=== PATIENT | female | born 1970 | race Caucasian/White ===

== ENCOUNTER 2020-03-14 12:33 | Inpatient (IN) | payer OTHER, SELFPAY ==
[2020-03-14 12:51] VITALS: BP 137/81; PULSE 104; RESP 17; TEMP 36.2; O2SAT 99; BMI 37.1
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
--- NOTE | 2020-03-14 13:53 | ECG_ITS ---
Test Reason : SOB Blood Pressure : / mmHG Vent. Rate : 091 BPM Atrial Rate : 091 BPM P-R Int : 152 ms QRS Dur : 080 ms QT Int : 356 ms P-R-T Axes : 028 003 050 degrees QTc Int : 437 ms Normal sinus rhythm Possible Left atrial enlargement Borderline ECG No previous ECGs available Referred By: Krzysztof hCeney Electronically Signed By:Lalo Gale
[2020-03-14 14:39] LABS: MANUAL DIFF FLAG NO
[2020-03-14 14:42] LABS: Basophils Percent Auto 0.1 % (0-2); Eosinophils Percent Auto 0.2 % (0-4); Hematocrit 41.7 % (37-47); Hemoglobin 13.5 g/dl (12.0-16.0); Imm Gran Abs Auto 0.04 X10*3/uL (0.00-0.03); Imm Gran Pct Auto 0.4 % (0.0-0.4); Lymphocytes Percent Auto 20.9 % (20-40); Mean Corpuscular HGB Conc 32.4 g/dl (31.0-35.0); Mean Corpuscular Hemoglobin 29.2 pg (27.0-33.0); Mean Corpuscular Volume 90.1 fL (80-98); Mean Platelet Volume 10.5 fL (9.4-12.3); Monocytes Absolute Auto 0.7 X10*3/uL (0.1-1.2); Monocytes Percent Auto 6.8 % (2-11); Neutrophils Absolute Auto 6.8 X10*3/uL (2.0-8.3); Neutrophils Percent Auto 71.6 % (45-73); Platelet Count 268 X10*3/uL (160-400); Red Blood Count 4.63 X10*6/uL (4.20-5.50); Red Cell Distribution Width 13.8 % (11.0-16.0); White Blood Count 9.6 X10*3/uL (4.8-10.8)
[2020-03-14 14:46] LABS: Glucose Urine UA NEG (NEG); Leukocyte Esterase Urine NEG (NEG); Nitrite Urine NEG (NEG); PH 6.5 (5.0-8.0); Urine Blood NEG (NEG); Urine Ketones NEG (NEG); Urine Protein NEG (NEG-TRACE)
[2020-03-14 14:54] LABS: Appearance Urine CLEAR; Color Urine YELLOW
[2020-03-14 14:57] LABS: Ethanol < 10 mg/dL
[2020-03-14 15:00] LABS: Alanine Aminotransferase 15 U/L (0-31); Alkaline Phosphatase 83 U/L (39-117); Anion Gap 11 (12-20); Aspartate Amino Transferase 16 U/L (5-31); Bilirubin Direct < 0.2 mg/dL (0.0-0.5); Bilirubin Total 0.2 mg/dL (0.0-1.0); Blood Urea Nitrogen 9 mg/dL (9-16); Calcium 8.6 mg/dL (8.4-10.2); Carbon Dioxide 29 mmol/L (22-29); Chloride 102 mmol/L (96-108); Creatinine Clr Calc Pharmacy 118.8; Estimated Glomerular Filt Rate > 60; Glucose Random 86 mg/dL (60-115); Potassium 4.9 mmol/l (3.3-5.1); Sodium 137 mmol/L (135-145); Total Protein 6.8 g/dL (6.5-8.0)
[2020-03-14 15:13] LABS: Amphetamine Screen Urine Not Detected (Not Detect); Barbiturates, Urine Not Detected (Not Detect); Benzodiazepines Screen Urine Not Detected (Not Detect); Cannabinoid Screen Urine Not Detected (Not Detect); Cocaine Screen Urine Not Detected (Not Detect); Opiate Screen Urine Not Detected (Not Detect); Phencyclidine Screen Urine Not Detected (Not Detect)
[2020-03-14 15:18] VITALS: BP 121/79; PULSE 97; RESP 18; O2SAT 99
[2020-03-14 15:41] LABS: COVID-19 Test Negative (Negative)
[2020-03-14 15:46] LABS: UPreg QC Valid YES; Urine Pregnancy NEGATIVE (NEGATIVE)
--- NOTE | 2020-03-14 15:47 | PC.NURSE ---
Pt exit seeking, states i dont want to be a bother Reassured multiple times with some effect. Awaiting bed on [facility] at this time. Security at side for verbal redirection with good effect.
--- NOTE | 2020-03-14 16:04 | PC.NURSE ---
After episode of exit seeking behavior, CARE team down to assess, section 12 placed in chart.
--- NOTE | 2020-03-14 17:08 | PC.NURSE ---
Pt moved to POD
--- NOTE | 2020-03-14 20:09 | PC.NURSE ---
Patient in out of room asking when she is going up to [facility], seems mildly anxious d/t unit commotion, no distress reported, hatchery supervisor notified that patient is pending admission to M5 over 2 hours, will continue to monitor.
[2020-03-14] MEDS: diphenhydrAMINE HCL 25 MG TABLET 50 MG PO (21:14)
--- NOTE | 2020-03-14 21:58 | MHC.CARE ---
This health science writer spoke with pt at length several times throughout the evening re: her continuing to board in the ED pending admission. Admission planned for this evening has been delayed until the morning, which pt was then demanding to leave. This health science writer contacted Dr. Barbosa (outpatient psychiatrist) and facilitated communication between the two of them in order to discuss and reinforce the need for pt to await inpatient admission. Pt agreeable at this time, with request from Dr. Barbosa that pt be allowed to sleep in a recliner. ED charge nurse stated that a recliner cannot be moved into the pod, and pt has the option of remaining in the pod or moving to [place] in ED to use a recliner. This health science writer acquired a mat and additional pillow in order to support pt in creating a more comfortable sleeping arrangement.
[2020-03-14] MEDS: risperiDONE 2 MG TABLET PO (22:37)
--- NOTE | 2020-03-14 22:40 | PC.NURSE ---
Patient requested Risperidone 2 mg, reported she takes every night, prescribed by Dr Maryann Moncada, called Dr Wolf/verified risperidone dose/provider notified/ordered respieridone 2mg/administered, no distress observed/reported, will continue to monitor.
--- NOTE | 2020-03-15 02:21 | PC.NURSE ---
Patient is currently in bed appears sleeping, no distress observed/reported, respiration +/=/non-labored bilaterally, will continue to monitor.
--- NOTE | 2020-03-15 06:01 | PC.NURSE ---
Baggage And Mail Agent called/notified to communicate with [facility] for admission. [facility] called spoke with charge nurse, who advised to present the case to day shift per charge nurse no one has notified about the patient. Patient currently in bed, appears sleeping, no distress observed/reported, will continue to monitor.
--- NOTE | 2020-03-15 07:21 | PC.NURSE ---
Report received from JOB Dominguez. Pt resting, resp unlabored.
[2020-03-15 09:09] VITALS: BP 138/80; PULSE 106; RESP 16; TEMP 36.8; O2SAT 97
--- NOTE | 2020-03-15 09:50 | PC.NURSE ---
Care team in to pick pt up to transfer to M[facility]., Pt pleasant, affect even, no concerns reported, appears ion agreement w/ plan to transfer.
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
[2020-03-15] MEDS: Lithium Carbonate 300 MG CAPSULE PO ×2 (12:38→20:23)
[2020-03-15] MEDS: risperiDONE 1 MG TABLET PO (12:38)
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
[2020-03-15 18:00] VITALS: BP 122/63; PULSE 102; TEMP 36.8
[2020-03-15] MEDS: Magnesium Hydrox/Alum Hydrox 30 ML ORAL.SUSP PO (19:12)
[2020-03-15] MEDS: risperiDONE 2 MG TABLET PO (20:23)
[2020-03-15] MEDS: diphenhydrAMINE HCL 25 MG TABLET 50 MG PO (20:23)
[2020-03-15] MEDS: Omeprazole 20 MG CAPSULE.DR PO (20:53)
[2020-03-16] MEDS: diphenhydrAMINE HCL 25 MG TABLET 50 MG PO ×3 (00:25→21:44)
[2020-03-16 06:15] VITALS: BP 111/63; PULSE 94; RESP 18; TEMP 37.1; O2SAT 96
[2020-03-16] MEDS: Lithium Carbonate 300 MG CAPSULE PO ×2 (08:42→20:19)
[2020-03-16] MEDS: risperiDONE 1 MG TABLET PO (08:43)
[2020-03-16 10:34] LABS: Cholesterol 161 mg/dL; HDL Cholesterol 52 mg/dL; LDL Cholesterol Calculated 97 mg/dl; Triglycerides 60 mg/dL
[2020-03-16 10:54] LABS: Thyroid Stimulating Hormone 1.83 uIU/mL (0.32-4.0)
[2020-03-16] MEDS: Acetaminophen 325 MG TABLET 650 MG PO (11:29)
[2020-03-16] MEDS: Omeprazole 40 MG CAPSULE.DR PO ×2 (11:32→16:21)
[2020-03-16 11:36] LABS: Estimated Average Glucose 105 mg/dL; Hemoglobin A1c % 5.3 %
[2020-03-16 12:07] LABS: Folate 6.8 ng/mL (> or = 4.0); Vitamin B12 311 pg/mL (200-900)
[2020-03-16] MEDS: Milk of Magnesia 30 ML ORAL.SUSP PO (14:08)
[2020-03-16 16:24] VITALS: BP 116/72; PULSE 107; TEMP 37.4
--- NOTE | 2020-03-16 19:38 | HO.PSYCHPN ---
Subjective Subjective Date of Service: 03/16/20 Reason For Visit: depression Subjective Notes: 3 Day Interim History: Allyson was somewhat less labile today. She was less paranoid and more able to reality test. She did express fear of other patients on the unit and that she wanted to leave. However she was able to see that her fears were not reality based and that she needs a little more time in the hospital. Medication Compliance: Yes Side effects from medications: No Attending Groups: Yes Review of Systems Acute medical concerns: No Medical Review of Systems: unchanged Review of Systems Reports system reviewed and no additional complaints, except as documented and Reports as per HPI Mental Status Exam Mental Status Exam Patient Appearance: Well Grooomed Patient Orientation: Person, Place and Time Level of Consciousness: Awake Patient Behavior: Appropriate and Talkative Mood Description: Calm Affect Description: Calm and Labile Speech Pattern: Clear Memory Description: Intact Hallucinations: None Delusions: Paranoid Ideation Thought Process: Intact Thought Content: positive for Circumstantial, positive for Perseveration, negative for Suicidal Ideation and negative for Homicidal Ideation Judgement: Fair Diagnostics Vital Signs (24Hr): Vital Signs - 24 hr 03/16/20 06:15 03/16/20 16:24 Temperature 98.8 F 99.3 F Pulse Rate 94 107 H Respiratory Rate 18 Blood Pressure 111/63 116/72 Pulse Oximetry 96 Body Mass Index 37.1 Labs Results: 03/14/20 14:28 03/14/20 14:28 Labs: Laboratory Results - last 48 hr 03/16/20 03/16/20 03/16/20 09:17 09:17 09:17 Estimat Average Glucose 105 Hemoglobin A1c % 5.3 Triglycerides 60 Cholesterol 161 LDL Cholesterol, Calc 97 HDL Cholesterol 52 Vitamin B12 311 Folate 6.8 TSH 1.83 Medications Medications Current Medications Generic Name Dose Route Start Last Admin Trade Name Freq PRN Reason Stop Dose Admin Acetaminophen 650 mg 03/15/20 10:12 03/16/20 11:29 Acetaminophen 325 Mg Tablet PO 650 mg Q6H PRN Administration Headache/Pain Mild Scale (1-3) Al Hydroxide/Mg Hydroxide 30 ml 03/15/20 10:12 03/15/20 19:12 Magnesium Hydrox/Alum Hydrox 30 Ml Oral.Susp PO 30 ml Q6H PRN Administration Heartburn/Nausea Diphenhydramine HCl 50 mg 03/15/20 21:00 03/16/20 00:25 Diphenhydramine Hcl 25 Mg Tablet PO 50 mg BEDTIME MRX1 SWEETIE Administration [place] Carbonate 300 mg 03/15/20 11:40 03/16/20 08:42 [place] Carbonate 300 Mg Capsule PO 300 mg BID SWEETIE Administration Magnesium Hydroxide 30 ml 03/15/20 10:12 03/16/20 14:08 Milk Of Magnesia 30 Ml Oral.Susp PO 30 ml DAILY PRN Administration Constipation Nicotine 21 mg 03/16/20 11:25 03/16/20 13:07 Nicotine 21 Mg Patch.Td24 TRANSDERMA Not Given DAILY SWEETIE Omeprazole 40 mg 03/16/20 11:25 03/16/20 16:21 Omeprazole 40 Mg Capsule.Dr PO 40 mg BID@0630,1630 SWEETIE Administration Risperidone 1 mg 03/15/20 11:40 03/16/20 08:43 Risperidone 1 Mg Tablet PO 1 mg DAILY SWEETIE Administration Risperidone 2 mg 03/15/20 21:00 03/15/20 20:23 Risperidone 2 Mg Tablet PO 2 mg BEDTIME SWEETIE Administration Risperidone 0.5 mg 03/15/20 11:38 Risperidone 0.5 Mg Tablet PO Q4H PRN Anxiety Trazodone HCl 50 mg 03/15/20 10:12 Trazodone Hcl 50 Mg Tablet PO BEDTIME PRN Insomnia Allergies Allergies Allergy/AdvReac Type Severity Reaction Status Date / Time No Known Allergies Allergy Verified 03/14/20 13:53 Assessment & Plan Assessment & Plan (1) Bipolar 1 disorder: Status: Acute Code(s): F31.9 - Bipolar disorder, unspecified Assessment and Plan: CT Ramya and donna Anticipate DC 03/18/20 Greater than 50% of the session was spent on counseling and/or coordination of care Patient educated on: diagnosis and medication risk/benefits Informed Consent: further education needed Reason for contiued inpatient stay Substantial Risk for: inability to function
[2020-03-16] MEDS: risperiDONE 2 MG TABLET PO (20:19)
[2020-03-16] MEDS: risperiDONE 0.5 MG TABLET PO (22:49)
[2020-03-17] MEDS: traZODone HCL 50 MG TABLET PO ×2 (01:03→02:24)
[2020-03-17] MEDS: Omeprazole 40 MG CAPSULE.DR PO ×2 (05:58→16:18)
[2020-03-17 06:10] VITALS: BP 114/72; PULSE 97; RESP 16; TEMP 37; O2SAT 97
[2020-03-17] MEDS: Lithium Carbonate 300 MG CAPSULE PO ×2 (08:50→20:35)
[2020-03-17] MEDS: risperiDONE 1 MG TABLET PO (08:50)
[2020-03-17 16:23] VITALS: BP 113/80; PULSE 116; TEMP 37.3
--- NOTE | 2020-03-17 20:31 | P.PNPSI_ITS ---
Subjective Subjective Date of Service: 03/17/20 Reason For Visit: depression Subjective Notes: Conditional Voluntary and 3 Day Interim History: Patient seen in coverage for Dr. graeme ve[place] patient has 3 day notice tentative discharge for tomorrow. Patient was admitted in manic state with paranoia. Somewhat pressured but feels much more stable on Risperdal and lithium Medication Compliance: Yes Side effects from medications: No Review of Systems Constitutional: Reports as per HPI Cardiovascular: Reports no additional cardiovascular complaints Reports system reviewed and no additional complaints, except as documented and Reports as per HPI Mental Status Exam Mental Status Exam Patient Appearance: Well Grooomed Patient Orientation: Person, Place and Time Level of Consciousness: Awake Patient Behavior: Appropriate and Talkative Mood Description: Calm Affect Description: Calm and Labile Speech Pattern: Clear and Perseverating Memory Description: Intact Hallucinations: None Thought Process: Intact Thought Content: positive for Perseveration, negative for Suicidal Ideation and negative for Homicidal Ideation Judgement: Fair Judgement and Insight: no gross PI noted accepting tx Diagnostics Vital Signs (24Hr): Vital Signs - 24 hr 03/17/20 06:10 03/17/20 16:23 Temperature 98.6 F 99.1 F Pulse Rate 97 116 H Respiratory Rate 16 Blood Pressure 114/72 113/80 Pulse Oximetry 97 Body Mass Index 37.1 Labs Results: 03/14/20 14:28 03/14/20 14:28 Labs: Laboratory Results - last 48 hr 03/16/20 03/16/20 03/16/20 09:17 09:17 09:17 Estimat Average Glucose 105 Hemoglobin A1c % 5.3 Triglycerides 60 Cholesterol 161 LDL Cholesterol, Calc 97 HDL Cholesterol 52 Vitamin B12 311 Folate 6.8 TSH 1.83 Medications Medications Current Medications Generic Name Dose Route Start Last Admin Trade Name Freq PRN Reason Stop Dose Admin Acetaminophen 650 mg 03/15/20 10:12 03/16/20 11:29 Acetaminophen 325 Mg Tablet PO 650 mg Q6H PRN Administration Headache/Pain Mild Scale (1-3) Al Hydroxide/Mg Hydroxide 30 ml 03/15/20 10:12 03/15/20 19:12 Magnesium Hydrox/Alum Hydrox 30 Ml Oral.Susp PO 30 ml Q6H PRN Administration Heartburn/Nausea Diphenhydramine HCl 50 mg 03/15/20 21:00 03/16/20 21:44 Diphenhydramine Hcl 25 Mg Tablet PO 50 mg BEDTIME MRX1 SWEETIE Administration [place] Carbonate 300 mg 03/15/20 11:40 03/17/20 08:50 [place] Carbonate 300 Mg Capsule PO 300 mg BID SWEETIE Administration Magnesium Hydroxide 30 ml 03/15/20 10:12 03/16/20 14:08 Milk Of Magnesia 30 Ml Oral.Susp PO 30 ml DAILY PRN Administration Constipation Nicotine 21 mg 03/16/20 11:25 03/17/20 08:52 Nicotine 21 Mg Patch.Td24 TRANSDERMA Not Given DAILY SWEETIE Omeprazole 40 mg 03/16/20 11:25 03/17/20 16:18 Omeprazole 40 Mg Capsule.Dr PO 40 mg BID@0630,1630 SWEETIE Administration Risperidone 1 mg 03/15/20 11:40 03/17/20 08:50 Risperidone 1 Mg Tablet PO 1 mg DAILY SWEETIE Administration Risperidone 2 mg 03/15/20 21:00 03/16/20 20:19 Risperidone 2 Mg Tablet PO 2 mg BEDTIME SWEETIE Administration Risperidone 0.5 mg 03/15/20 11:38 03/16/20 22:49 Risperidone 0.5 Mg Tablet PO 0.5 mg Q4H PRN Administration Anxiety Trazodone HCl 50 mg 03/15/20 10:12 03/17/20 02:24 Trazodone Hcl 50 Mg Tablet PO 50 mg BEDTIME PRN Administration Insomnia Allergies Allergies Allergy/AdvReac Type Severity Reaction Status Date / Time No Known Allergies Allergy Verified 03/14/20 13:53 Assessment & Plan Assessment & Plan (1) Bipolar 1 disorder: Status: Acute Code(s): F31.9 - Bipolar disorder, unspecified (2) Paranoid delusion: Status: Acute Code(s): F22 - Delusional disorders Assessment and Plan: continue Risperdal and lithium patient on 3 day notice probable discharge tomorrow Greater than 50% of the session was spent on counseling and/or coordination of care Patient educated on: diagnosis and medication risk/benefits Informed Consent: further education needed Reason for contiued inpatient stay Substantial Risk for: rapid decompensation
[2020-03-17] MEDS: diphenhydrAMINE HCL 25 MG TABLET 50 MG PO (20:36)
[2020-03-17] MEDS: risperiDONE 2 MG TABLET PO (20:36)
[2020-03-17] MEDS: Melatonin 3 MG TABLET 6 MG PO (21:29)
[2020-03-18] MEDS: diphenhydrAMINE HCL 25 MG TABLET 50 MG PO (02:48)
[2020-03-18 05:15] VITALS: BP 93/63; PULSE 118; RESP 18; TEMP 36.8; O2SAT 96
[2020-03-18] MEDS: Omeprazole 40 MG CAPSULE.DR PO (06:36)
[2020-03-18] MEDS: Lithium Carbonate 300 MG CAPSULE PO (08:29)
[2020-03-18] MEDS: risperiDONE 1 MG TABLET PO (08:30)
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
== END 2020-03-18 12:00 | disposition home or self-care (01) | DRG 885 ==
LOC: HO.ED 03-15 09:28 → HO.PM5 03-15 09:30
PROVIDERS: Physician Assistant; Admitting Provider Psychiatry & Neurology Psychiatry; Emergency Provider Emergency Medicine; PCP Internal Medicine; Visit Provider Psychiatry & Neurology Psychiatry
DX: F31.9 Bipolar disorder, unspecified (principal); F17.210 Nicotine dependence, cigarettes, uncomplicated; Z71.6 Tobacco abuse counseling; Z20.828 Contact with and (suspected) exposure to other viral communicable diseases; Z79.899 Other long term (current) drug therapy
CPT/HCPCS: 36415; 80053; 80061; 80076; 80178; 80307; 80320; 81003; 81025; 82607; 82746; 83036; 84443; 85025; 87635; 93005; 99232; 99285; Q0163

== ENCOUNTER 2024-10-31 03:55 | Inpatient (IN) | payer OTHER, SELFPAY ==
--- NOTE | ~2024-10-31 | XR_ITS ---
CLINICAL HISTORY: leukocytosis, ams 1 view chest x-ray Comparison: None provided Findings: Portions of the exam are obscured by overlying material. The lungs are clear. Normal size heart. No acute fracture. IMPRESSION: 1. No acute findings. This document has been electronically signed by: Jovanni Duvall MD on 10/31/2024 06:23:31
[2024-10-31 03:59] VITALS: BP 172/91; PULSE 109; RESP 16; TEMP 37.1; O2SAT 97; BMI 33.3
--- NOTE | 2024-10-31 04:18 | PC.NURSE ---
upon entering triage pt stated she feels she's having manic episode and is paranoid and exhausted. pt then stated she'd actually like to leave. verbal reassurance provided to patient as we are here to help her with her sx. pt agreed and stated she needs help with her anxiety. pt denies si/hi/ah/vh. pt verbalizes she believes she needs to be inpt bed search and wants to be sent to a different facility, educated this can happen after speaking with care team and pt is in agreement. pt states she has not been able to sleep and requesting medication for sleep. pt is agreeable to blood work being done. extension service specialist in charge made aware and report given to pod RN.
[2024-10-31 04:26] LABS: Hematocrit 39.6 % (37.0-47.0); Hemoglobin 14.5 g/dl (12.0-16.0); Imm Gran Abs Auto 0.14 X10*3/uL (0.00-0.03); Imm Gran Pct Auto 0.9 % (0.0-0.4); Lymphocytes Absolute Auto 1.7 X10*3/uL (1.2-4.9); MANUAL DIFF FLAG NO; Mean Corpuscular HGB Conc 36.6 g/dl (31.0-35.0); Mean Corpuscular Hemoglobin 31.0 pg (27.0-33.0); Mean Corpuscular Volume 84.6 fL (80.0-98.0); NRBC Abs Auto 0.000 X10*3/uL (0.0-0.012); NRBC Pct Auto 0.0 /100WBC (0.0-0.2); Platelet Count 298 X10*3/uL (160-400); Red Blood Count 4.68 X10*6/uL (4.20-5.50); White Blood Count 16.0 X10*3/uL (4.8-10.8)
--- NOTE | 2024-10-31 04:40 | ED.PSYCH ---
HPI - Psych General Chief Complaint: Psychiatric Symptoms Stated Complaint: Psych requesting help Time Seen by Provider: 10/31/24 04:29 Source: patient Mode of arrival: ambulatory Limitations: no limitations History of Present Illness ED Provider: Dr. Jeane Youngblood HPI Narrative: patient comes to the emergency room stating that she feels that she is paranoid, exhausted, has not been sleeping for over a week. Patient denies SI or HI. Patient states that she feels scared, does not know what to do. Patient states that she is requesting to be transferred to a different hospital because she knows a lot of people who work here and wants some privacy. Related Data Previous Rx's ?Medication ?Instructions ?Recorded diphenhydramine HCl 25 mg tablet 50 mg (2 x 25 mg) PO BEDTIME MRX1 03/18/20 (Allergy Relief (diphenhydramine)) #60 tabs lithium carbonate 300 mg capsule 600 mg (2 x 300 mg) PO BID #120 03/18/20 caps melatonin 3 mg tablet 6 mg (2 x 3 mg) PO BEDTIME #60 tabs 03/18/20 omeprazole 40 mg capsule,delayed 40 mg PO BID@0630,1630 #60 caps 03/18/20 release risperidone 1 mg tablet 1 mg PO DAILY #30 tabs 03/18/20 risperidone 2 mg tablet 2 mg PO BEDTIME #30 tabs 03/18/20 trazodone 50 mg tablet 50 mg PO BEDTIME PRN Insomnia #30 03/18/20 tabs Allergies Allergy/AdvReac Type Severity Reaction Status Date / Time No Known Allergies Allergy Verified 10/31/24 04:05 Review of Systems Review of Systems: Constitutional : No Weight loss, No Fever, No Chills, No Night Sweats, No Fatigue, No Malaise ENT/Mouth : No Hearing loss, No Ear Pain, No Nasal Congestion, No Sinus Pain, No Hoarseness, No sore throat, No Rhinorrhea, No Swallowing Difficulty Eyes: No Eye Pain, No Swelling, No Redness, No Foreign Body, No Discharge, No Vision Changes Cardiovascular : No Chest Pain, No SOB, No Dyspnea on Exertion, No Orthopnea, No Edema, No Palpitations Respiratory : No Cough, No Sputum, No Wheezing, No Smoke Exposure, No Dyspnea Gastrointestinal : No Nausea, No Vomiting, No Diarrhea, No Constipation, No abdominal Pain, No Hematochezia, No Melena Genitourinary : no irregular bleeding, No Dysuria, No Urinary Frequency, No Hematuria, No Urinary Incontinence, No Urgency, No Flank Pain, No Urinary Flow Changes, No Hesitancy Musculoskeletal : No joint pain, No Myalgias, No Joint Swelling Skin : No Skin Lesions, No rash Neuro : No Weakness, No Numbness, No Paresthesias, No Loss of Consciousness, No Dizziness, No Headache Psych : patient feeling scared, denies SI or HI, admits to feeling manic and paranoid Heme/Lymph: No Bruising, No Bleeding,No Lymphadenopathy Endocrine : No Polyuria, No Polydipsia, No Temperature Intolerance PMFSH Past Medical History Medical History Bipolar 1 disorder ADD (attention deficit disorder) Anxiety Depression Social History Social History Household Members: None Housing: House Do you presently have visiting nurse or other home services: No Cigarette Packs Per Day: 1 Cigarettes Per Day: 20.0 Years Smoked: 20 Smoked in Last 30 Days: No Second Hand Smoke Exposure: No Use of substances other than those prescribed or required for medical reasons: No Advance Directives: No Advance Directives Information Provided: No Patient : No service: No Sexual orientation: Straight/Heterosexual Physical Exam Exam: Exam: Appearance: Alert. Oriented X3. No acute distress. Eyes: Pupils equal, round and reactive to light. ENT: Pharynx normal. Neck: Normal inspection. Neck supple. No lymph nodes noted. No crepitus CVS: Normal heart rate and rhythm. Pulses normal. Normal S1 and S2 Respiratory: No respiratory distress. Breath sounds normal. No Wheezing. No rales Abdomen: Soft and nontender. No rigidity. No distention. Skin: Skin warm and dry. Normal skin color. Normal skin turgor. Extremities: No lower extremity edema. No Lacerations. No Rash Neuro: Oriented X 3. No motor deficit. No sensory deficit. Moving all extremities. No slurred speech. CN 2 through 12 grossly intact Psych: calm, anxious, speaking almost with spurring, states that a lot of people know her here and wants to be transferred to a different hospital were people do not know her Vital Signs: Vital Signs: Last Vital Signs Temp 98.7 F 10/31/24 03:59 Pulse 109 H 10/31/24 03:59 Resp 16 10/31/24 03:59 BP 172/91 H 10/31/24 03:59 Pulse Ox 97 10/31/24 03:59 O2 Del Method Room Air 10/31/24 03:59 BMI result Body Mass Index 33.3 Course Course Course Narrative: patient is paranoid, seems to be exhausted. Patient having difficulty following directions, feels scared, keeps saying that she does not know what to do. On arrival, patient voluntarily took p.o. medication including p.o. Haldol, Benadryl and Ativan care team consult physician observation started at 04:30 Medications Administered Discontinued Medications Generic Name Dose Route Start Last Admin Trade Name Freq PRN Reason Stop Dose Admin Diphenhydramine HCl 50 mg 10/31/24 04:30 10/31/24 04:37 Diphenhydramine Hcl 25 Mg Capsule PO 10/31/24 04:31 50 mg ONCE ONE Administration Haloperidol 5 mg 10/31/24 04:30 10/31/24 04:37 Haloperidol 5 Mg Tablet PO 10/31/24 04:31 5 mg ONCE ONE Administration Lorazepam 2 mg 10/31/24 04:30 10/31/24 04:36 Lorazepam 1 Mg Tablet PO 10/31/24 04:31 2 mg ONCE ONE Administration Medical Decision Making Medical Decision Making [facility] Narrative: my interpretation of labs: Patient's white blood cell count at 16, no obvious signs of infection, likely reactive leukocytosis. Chemistry shows a sodium of 123. It is possible that patient may have SIADH secondary to her psychiatric medications LFTs normal. urinalysis negative for UTI, negative for Toxicology. all of the sodium studies pending I discussed the patient with Dr. Bangura, patient being admitted. Differential Diagnosis Differential Diagnoses: The differential diagnosis associated with the presentation includes ( anxiety, depression, bipolar disorder) Admission/Observation Consideration of admission/observation: Escalation of care including admission/observation considered ( patient is under physician observation, waiting to be seen by the care team.) Consult Healthcare Provider Management of the patient was discussed with: Hospitalist Lab Data [facility] Lab Attestation statement: I reviewed the patient's lab results. 10/31/24 04:21 10/31/24 04:21 Labs: Lab Results 10/31/24 10/31/24 Range/Units 04:21 04:41 WBC 16.0 H (4.8-10.8) X10*3/uL RBC 4.68 (4.20-5.50) X10*6/uL Hgb 14.5 (12.0-16.0) g/dl Hct 39.6 (37.0-47.0) % MCV 84.6 (80.0-98.0) fL MCH 31.0 (27.0-33.0) pg MCHC 36.6 H (31.0-35.0) g/dl RDW 12.7 (11.0-16.0) % Plt Count 298 (160-400) X10*3/uL MPV 9.4 (9.4-12.3) fL Immature Gran % (Auto) 0.9 H (0.0-0.4) % Neut % (Auto) 82.6 H (45-73) % Lymph % (Auto) 10.7 L (20-40) % [place] % (Auto) 5.7 (2-11) % Eos % (Auto) 0.0 (0-4) % Baso % (Auto) 0.1 (0-2) % Lymph # (Auto) 1.7 (1.2-4.9) X10*3/uL [place] # (Auto) 0.9 (0.1-1.2) X10*3/uL Eos # (Auto) 0.0 (0.0-0.4) X10*3/uL Baso # (Auto) 0.0 (0.0-0.2) X10*3/uL Abs Immat Gran (auto) 0.14 H (0.00-0.03) X10*3/uL Absolute Neuts (auto) 13.2 H (2.0-8.3) x10*3/uL Absolute Nucleated RBC 0.000 (0.0-0.012) X10*3/uL Nucleated RBC % (auto) 0.0 (0.0-0.2) /100WBC Sodium 123 L (135-145) mmol/L Potassium 3.8 (3.3-5.1) mmol/L Chloride 91 L (96-108) mmol/L Carbon Dioxide 21 L (22-29) mmol/L Anion Gap 15 (12-20) BUN 5 L (9-16) mg/dL Creatinine 0.50 (0.5-1.4) mg/dL Estim Creat Clear Calc 139.7 Estimated GFR > 60 Random Glucose 172 H (60-115) mg/dL Calcium 8.7 (8.4-10.2) mg/dL Total Bilirubin 0.5 (0.0-1.0) mg/dL AST 26 (5-31) U/L ALT 24 (0-31) U/L Alkaline Phosphatase 80 (39-117) U/L Total Protein 6.8 (6.5-8.0) g/dL Albumin 4.1 (3.5-5.0) g/dL Urine Color Yellow Urine Appearance Clear Urine pH 7.5 (5.0-9.0) Ur Specific [place] 1.020 (1.005-1.025) Urine Protein Trace (Neg-Trace) mg/dL Urine Glucose (UA) >=1000 H (Negative) mg/dL Urine Ketones 40 (Negative) mg/dL Urine Blood Negative (Negative) Urine Nitrite Negative (Negative) Ur Leukocyte Esterase Moderate (2+) H (Negative) Urine RBC 0-2 (0-2) /HPF Urine WBC 0-5 (0-5) /HPF Ur Squamous Epith Cells 6-10 (0-2) /HPF Urine Bacteria 1+ (None Seen) Hyaline Casts 0-2 (0-2) /LPF Salicylates < 5.0 L (15-30) mg/dL Urine Opiates Screen Not Detected (Not Detect) Ur Buprenorphine Scrn Not Detected (Not Detect) ng/mL Ur Oxycodone Screen Not Detected (Not Detect) ng/mL Urine Methadone Screen Not Detected (Not Detect) ng/mL Urine Fentanyl Screen Not Detected (Not Detect) Acetaminophen < 3 (<30) mcg/mL Ur Barbiturates Screen Not Detected (Not Detect) Ur Phencyclidine Scrn Not Detected (Not Detect) Ur Amphetamines Screen Not Detected (Not Detect) U Benzodiazepines Scrn Not Detected (Not Detect) Urine Cocaine Screen Not Detected (Not Detect) U Marijuana (THC) Screen Not Detected (Not Detect) Ethyl Alcohol < 10 mg/dL Critical Care Time Critical Care Time Critical Care Time: Yes Total Critical Care Time: 60 Attestation: I have personally provided critical care time. Time includes review of lab data, radiology results, discussion with consultants, and monitoring for potential decompensation. Intervention performed as documented. Discharge Plan Discharge Clinical Impression: Acute hyponatremia, Bipolar 1 disorder Patient Disposition: Admitted As Inpatient Interventions: [place]-Suicide Risk Severity Scale Last Done: 10/31/24 04:58 Print Language: Citizen Of [place]
[2024-10-31 04:50] LABS: Acetaminophen LAB < 3 mcg/mL (<30); Alanine Aminotransferase 24 U/L (0-31); Albumin Level 4.1 g/dL (3.5-5.0); Alkaline Phosphatase 80 U/L (39-117); Anion Gap 15 (12-20); Aspartate Amino Transferase 26 U/L (5-31); Blood Urea Nitrogen 5 mg/dL (9-16); Calcium 8.7 mg/dL (8.4-10.2); Carbon Dioxide 21 mmol/L (22-29); Chloride 91 mmol/L (96-108); Creatinine Clr Calc Pharmacy 139.7; Estimated Glomerular Filt Rate > 60; Potassium 3.8 mmol/L (3.3-5.1); Salicylate < 5.0 mg/dL (15-30); Sodium 123 mmol/L (135-145); Total Protein 6.8 g/dL (6.5-8.0)
[2024-10-31 04:51] LABS: Appearance Urine Clear; Glucose Urine UA >=1000 mg/dL (Negative); PH 7.5 (5.0-9.0); Specific Gravity - Urine 1.020 (1.005-1.025); UMIC TRIGGER UACC YES
--- NOTE | 2024-10-31 04:56 | PC.NURSE ---
pt change management manager, labs, urine collected, pt medicated per mar.
[2024-10-31 05:02] LABS: Cannabinoid Screen Urine Not Detected (Not Detect)
--- NOTE | 2024-10-31 05:03 | PC.NURSE ---
Pt has two blister on her right and left foot from sandels
[2024-10-31 05:10] LABS: UACC Culture Trigger YES
--- NOTE | 2024-10-31 05:20 | PC.NURSE ---
Notified Dr. Youngblood of labs results, new orders placed, charge nurse aware, pt will be going to the main.
--- NOTE | 2024-10-31 05:38 | PC.NURSE ---
pt brought to room 6.
[2024-10-31 05:39] LABS: Osmolality, Serum 250 mosm/kg (281-305)
[2024-10-31 05:40] VITALS: BP 131/78; PULSE 88; RESP 14; TEMP 36.5; O2SAT 97
--- NOTE | 2024-10-31 05:41 | PC.NURSE ---
patient from POD due to lab results and change in condition. assumed care from prior RN at this time.
--- NOTE | 2024-10-31 05:47 | P.HPHOSP_ITS ---
History of Present Illness Date of Service: 10/31/24 Attending physician on admission: Gualberto Bangura Chief Complaint: anxiety Patient is a 54-year-old female with a past medical history significant for bipolar 1, who presented to the ED due to paranoia and anxiety stating that she is exhausted. Pt is somnolent and medicated, unable to provide a history at this time. Per Ed provider note pt is exhausted, has not been sleeping for over a week. Patient denies SI or HI. Patient states that she feels scared, does not know what to do. Patient states that she is requesting to be transferred to a different hospital because she knows a lot of people who work here and wants some privacy. In the ED she was found to be hyponatremic, likely SIADH. Tachycardia secondary to anxiety. Leukocytosis likely reactive, no infection identified. UTox negative, UA negative for infection. Review of Systems 2 Constitutional: Constitutional: Denies chills, Denies fatigue, Denies fever(s) and Denies headache(s) Eyes: Eyes: Denies change in vision ENT: Denies headache(s), Denies nasal congestion and Denies sore throat Cardiovascular: Cardiovascular: Denies chest pain, Denies rapid heart rate, Denies leg edema, Denies lightheadedness and Denies dyspnea Respiratory: Respiratory: Denies chest congestion, Denies cough, Denies dyspnea and Denies wheezing Gastrointestinal: Gastrointestinal: Denies abdominal pain, Denies nausea and Denies vomiting Genitourinary: Genitourinary: Denies dysuria and Denies urinary urgency Musculoskeletal: Musculoskeletal: Denies myalgias Integumentary/Breasts: Skin/Breast: Denies rash Neurologic: Denies confusion and Denies headache(s) Psychiatric: Psychiatric: Reports as per HPI and Denies confusion Endocrine: Endocrine: Denies fatigue Hematologic/Lymphatic: Hematologic/Lymphatic: Denies easy bleeding and Denies easy bruising Allergic/Immunologic: Allergic/Immunologic: Denies wheezing [facility] Medical History Bipolar 1 disorder ADD (attention deficit disorder) Anxiety Depression Functional capacity: independent ambulation Social History Household Members: None Housing: House Do you presently have visiting nurse or other home services: No Cigarette Packs Per Day: 1 Cigarettes Per Day: 20.0 Years Smoked: 20 Smoked in Last 30 Days: No Second Hand Smoke Exposure: No Use of substances other than those prescribed or required for medical reasons: No Advance Directives: No Advance Directives Information Provided: No Patient : No service: No Sexual orientation: Straight/Heterosexual Narrative: No smoking, alcohol or drug use Meds Allergies Allergy/AdvReac Type Severity Reaction Status Date / Time No Known Allergies Allergy Verified 10/31/24 04:05 Active Medications: Current Medications Acetaminophen (Acetaminophen 325 Mg Tablet) 975 mg PO Q6H PRN PRN Reason: Pain, Mild 1-3,fever,headache Calcium Carbonate (Calcium Carbonate 750 Mg Tab.Chew) 750 mg PO Q4H PRN PRN Reason: Heartburn Enoxaparin Sodium (Enoxaparin Sodium 40 Mg/0.4 Ml Syringe) 40 mg SUBCUT Q24H SWEETIE Magnesium Hydroxide (Milk Of Magnesia 30 Ml Oral.Susp) 30 ml PO DAILY PRN PRN Reason: Constipation Melatonin (Melatonin 3 Mg Tablet) 6 mg PO BEDTIME PRN PRN Reason: Insomnia Sodium Chloride (0.9 % Sodium Chloride Flush 3 Ml Syringe) 3 ml IVFLUSH QSHIFT SWEETIE Physical Exam 2 Vital Signs and Narrative: Vital Signs: Last Vital Signs Temp 97.7 F 10/31/24 05:40 Pulse 88 10/31/24 05:40 Resp 14 10/31/24 05:40 BP 131/78 10/31/24 05:40 Pulse Ox 97 10/31/24 05:40 O2 Del Method Room Air 10/31/24 05:40 BMI result Body Mass Index 33.3 General: somnolent, will goan when you call her name. no acute distress Resp: CTA bilaterally CVS: S1, S2, RRR GI: +BS, NT, no distention Skin: Warm, dry Neuro: Cranial nerves II-XII grossly intact bilaterally. Motor grossly intact bilaterally Extremities: No edema Psych: somnolent Const: General: No confusion Orientation/consciousness: No confusion Neuro: General: No confusion Results Labs 10/31/24 04:21 10/31/24 04:21 Labs: Laboratory Results - last 24 hr 10/31/24 10/31/24 10/31/24 04:21 04:41 05:08 MCV 84.6 MCH 31.0 MCHC 36.6 H RDW 12.7 Plt Count 298 MPV 9.4 Immature Gran % (Auto) 0.9 H Neut % (Auto) 82.6 H Lymph % (Auto) 10.7 L [place] % (Auto) 5.7 Eos % (Auto) 0.0 Baso % (Auto) 0.1 Lymph # (Auto) 1.7 [place] # (Auto) 0.9 Eos # (Auto) 0.0 Baso # (Auto) 0.0 Abs Immat Gran (auto) 0.14 H Absolute Neuts (auto) 13.2 H Absolute Nucleated RBC 0.000 Nucleated RBC % (auto) 0.0 Anion Gap 15 Estim Creat Clear Calc 139.7 Estimated GFR > 60 Random Glucose 172 H Osmolality 250 L Calcium 8.7 Total Bilirubin 0.5 AST 26 ALT 24 Alkaline Phosphatase 80 Total Protein 6.8 Albumin 4.1 Urine Color Yellow Urine Appearance Clear Urine pH 7.5 Ur Specific [place] 1.020 Urine Protein Trace Urine Glucose (UA) >=1000 H Urine Ketones 40 Urine Blood Negative Urine Nitrite Negative Ur Leukocyte Esterase Moderate (2+) H Urine RBC 0-2 Urine WBC 0-5 Ur Squamous Epith Cells 6-10 Urine Bacteria 1+ Hyaline Casts 0-2 Salicylates < 5.0 L Urine Opiates Screen Not Detected Ur Buprenorphine Scrn Not Detected Ur Oxycodone Screen Not Detected Urine Methadone Screen Not Detected Urine Fentanyl Screen Not Detected Acetaminophen < 3 Ur Barbiturates Screen Not Detected Ur Phencyclidine Scrn Not Detected Ur Amphetamines Screen Not Detected U Benzodiazepines Scrn Not Detected Urine Cocaine Screen Not Detected U Marijuana (THC) Screen Not Detected Ethyl Alcohol < 10 Assessment and Plan (1) Acute hyponatremia: Status: Acute (2) Bipolar 1 disorder: Status: Acute Plan Patient is a 54-year-old female with a past medical history significant for bipolar 1, who presented to the ED due to paranoia and anxiety stating that she is exhausted.Patient is a 54-year-old female with a past medical history significant for bipolar 1, who presented to the ED due to paranoia and anxiety stating that she is exhausted. acute hyponatremia, likely SIADH - sodium 123 - urine sodium, serum osmolality, urine osmolality pending - BNP with hypochloremic metabolic acidosis - UTox negative - UA negative for infection - leukocytosis, likely reactive, no infection identified - tachycardia secondary to anxiety - LR 50 mL/HR - psych consult - monitor BMP Bipolar 1 - anxious and paranoid, currently somnolent from benedryl, haldol and ativan in ED - psych consult Med rec pending Full code VTE prophylaxis: Lovenox Patient with acute hyponatremia, likely SIADH, requiring admission for at least 2 midnights stay for further evaluation, psych consult and monitoring. Quality Stroke Does the patient have a stroke diagnosis?: No VTE Prior VTE?: No VTE Risk Level:: Medical - moderate - high VTE Device Contraindication: Treatment Not Indicated VTE Drug Contraindication: N/A - Med Ordered
[2024-10-31] MEDS: Lactated Ringers 1,000 ML 50 ML IVCONT (05:57)
[2024-10-31 06:24] LABS: Resp Syncy Virus RNA Qual PCR NEGATIVE (Negative); SARS COV2 PCR INHOUSE NEGATIVE (Negative)
[2024-10-31 08:30] LABS: Thyroid Stimulating Hormone 1.00 uIU/mL (0.32-4.0)
[2024-10-31 09:48] VITALS: BP 125/65; PULSE 83; RESP 15; TEMP 36.6; O2SAT 97
--- NOTE | 2024-10-31 10:45 | PHA.MEDREC ---
Addendum entered by Penny Niño RPh 10/31/24 11:20: reviewed by [facility]. Original Note: Pharmacy Consult ? Medication Reconciliation Pharmacy has completed the medication reconciliation. Spoke with patient to confirm. She last took lamotrigine a few days ago. All other medications are as needed. She reports hydroxyzine is prn for anxiety.
[2024-10-31 11:57] VITALS: BMI 34.7
[2024-10-31 12:12] VITALS: BP 114/66; PULSE 88; RESP 16; TEMP 36.3; O2SAT 95
[2024-10-31 13:32] LABS: Anion Gap 9 (12-20); Blood Urea Nitrogen 4 mg/dL (9-16); Calcium 8.7 mg/dL (8.4-10.2); Carbon Dioxide 27 mmol/L (22-29); Chloride 95 mmol/L (96-108); Creatinine Clr Calc Pharmacy 145.8; Estimated Glomerular Filt Rate > 60; Potassium 3.9 mmol/L (3.3-5.1); Sodium 127 mmol/L (135-145)
[2024-10-31 15:15] VITALS: BP 122/66; PULSE 85; RESP 20; TEMP 36.8; O2SAT 97
--- NOTE | 2024-10-31 15:15 | PM.CNNEP ---
History of Present Illness Reason for Consult Consult date: 10/31/24 Reason for consult: Hyponatremia Chief Complaint Chief complaint: anxiety History of Present Illness Narrative: 54-year-old lady with past medical history of bipolar disease and paronia on clonidine, lamotrigine and olanzapine at home is admitted to the hospital due to hyponatremia. No history of vomiting, diarrhea, changes in diet. Urine sodium 125, urine osmolality 554 Review of Systems Review of Systems Patient is a poor historian does not want to talk much PMFSH Past Medical History Medical History Bipolar 1 disorder ADD (attention deficit disorder) Anxiety Depression Social History Social History Household Members: None Housing: House Do you presently have visiting nurse or other home services: No Cigarette Packs Per Day: 1 Cigarettes Per Day: 20.0 Years Smoked: 20 Smoked in Last 30 Days: No Second Hand Smoke Exposure: No Use of substances other than those prescribed or required for medical reasons: No Advance Directives: No Advance Directives Information Provided: No Patient : No service: No Sexual orientation: Straight/Heterosexual Meds Allergies Allergy/AdvReac Type Severity Reaction Status Date / Time No Known Allergies Allergy Verified 10/31/24 04:05 Active Medications: Current Medications Acetaminophen (Acetaminophen 325 Mg Tablet) 975 mg PO Q6H PRN PRN Reason: Pain, Mild 1-3,fever,headache Albuterol Sulfate (Albuterol Sulfate 90 Mcg 8 Gm Inhaler) 2 puff INHALE Q4H PRN PRN Reason: Shortness Of Breath Or Wheezing Calcium Carbonate (Calcium Carbonate 750 Mg Tab.Chew) 750 mg PO Q4H PRN PRN Reason: Heartburn Clonidine HCl (Clonidine Hcl 0.1 Mg Tablet) 0.1 mg PO BID PRN; Protocol PRN Reason: Anxiety Enoxaparin Sodium (Enoxaparin Sodium 40 Mg/0.4 Ml Syringe) 40 mg SUBCUT Q24H SWEETIE Last Admin: 10/31/24 10:30 Dose: 40 mg Hydroxyzine HCl (Hydroxyzine Hcl 50 Mg Tablet) 50 mg PO BEDTIME PRN PRN Reason: Anxiety Magnesium Hydroxide (Milk Of Magnesia 30 Ml Oral.Susp) 30 ml PO DAILY PRN PRN Reason: Constipation Melatonin (Melatonin 3 Mg Tablet) 6 mg PO BEDTIME PRN PRN Reason: Insomnia Olanzapine (Olanzapine 5 Mg Tablet) 5 mg PO BEDTIME PRN PRN Reason: Insomnia Sodium Chloride (0.9 % Sodium Chloride Flush 3 Ml Syringe) 3 ml IVFLUSH [facility] Last Admin: 10/31/24 07:15 Dose: Not Given Sodium Chloride (Sodium Chloride Tab 1 Gm Tablet) 1 gm PO TID [facility] Home Medications ?Medication ?Instructions ?Recorded ?Confirmed ?Last Taken ?Type albuterol sulfate 90 mcg/actuation 2 puff inhalation Q4H PRN 10/31/24 10/31/24 Unknown History aerosol inhaler Shortness Of Breath Or Wheezing clonidine HCl 0.1 mg tablet 0.1 mg PO BID PRN anxiety 10/31/24 10/31/24 Unknown History hydroxyzine pamoate 50 mg capsule 50 mg PO BEDTIME PRN Anxiety 10/31/24 10/31/24 Unknown History lamotrigine 100 mg tablet 100 mg PO DAILY 10/31/24 10/31/24 Unknown History olanzapine 5 mg tablet 5 mg PO BEDTIME PRN insomnia 10/31/24 10/31/24 Unknown History Physical Exam Exam Exam: General: Elderly lady comfortable, lying in the bed and sleeping Nutritional Appearance: well nourished and overweight Eyes: appearance normal, both eyes and all related structures; Alignment and Position: alignment normal and position normal Neck: No lymphadenopathy, no thyromegaly Resp: bilateral air entry equal, occasional added sounds present Cardio: Regular rate, regular rhythm; Heart sounds: S1 normal heart sound present and S2 normal heart sound present GI: soft, nontender, no guarding, no hepatosplenomegaly : bladder normal to inspection, bladder normal to palpation, no renal angle tenderness Skin: no rashes or lesions noted and elasticity normal Neuro: oriented to person, oriented to place, oriented to time and moves all extremities Vital Signs: Last Vital Signs Temp 97.4 F 10/31/24 12:12 Pulse 88 10/31/24 12:12 Resp 16 10/31/24 12:12 BP 114/66 10/31/24 12:12 Pulse Ox 95 10/31/24 12:12 O2 Del Method Room Air 10/31/24 12:12 BMI result Body Mass Index 34.7 Results Lab Results 10/31/24 04:21 10/31/24 12:45 Lab results: Chemistry 10/31/24 10/31/24 04:21 12:45 Sodium 123 L 127 L Potassium 3.8 3.9 Carbon Dioxide 21 L 27 BUN 5 L 4 L Creatinine 0.50 0.49 L Calcium 8.7 8.7 Hematology 10/31/24 04:21 WBC 16.0 H Hgb 14.5 Plt Count 298 Urinalysis 10/31/24 04:41 Urine Color Yellow Urine Appearance Clear Urine pH 7.5 Ur Specific [place] 1.020 Urine Protein Trace Urine Glucose (UA) >=1000 H Urine Ketones 40 Urine Blood Negative Urine Nitrite Negative Ur Leukocyte Esterase Moderate (2+) H Urine RBC 0-2 Urine WBC 0-5 Ur Squamous Epith Cells 6-10 Hyaline Casts 0-2 Urine Studies 10/31/24 05:25 Urine Osmolality 554 Assessment and Plan (1) Acute hyponatremia: Status: Acute Plan Acute hyponatremia: Possibly secondary to SIADH given her urine sodium 125 and Osmo 555 Given very high urine osmoles IV fluids would drop her serum sodium. Avoid any IV fluids. Fluid restriction less than 1.5 L in 24 hours We will add salt tablets 1 g TID Target sodium less than 130 by tomorrow. We will repeat another BMP tonight. Procedures Date of Service Date of Service: 10/31/24
[2024-10-31] MEDS: Sodium Chloride Tab 1 GM TABLET PO ×2 (15:24→20:07)
[2024-10-31] MEDS: 0.9 % Sodium Chloride Flush 3 ML SYRINGE IVFLUSH ×2 (16:34→20:09)
[2024-10-31 19:00] VITALS: BP 103/66; PULSE 91; RESP 20; TEMP 37.2; O2SAT 95
--- NOTE | 2024-10-31 20:16 | P.CNPS_ITS ---
History of Present Illness Date of Service: 10/31/24 Chief Complaint: anxiety Reason for Consult: Bipolar, parnaoid. Lamictal -SIDH Requesting physician: Deyanira Flynn Discussed with referring provider: Yes Sources of Information: patient interviewed, chart reviewed and crisis/core team assessment reviewed HPI Narrative: per ED provider note: patient is a 54 y.o female who comes to the emergency room stating that she feels that she is paranoid, exhausted, has not been sleeping for over a week. Patient denies SI or HI. Patient states that she feels scared, does not know what to do. Patient states that she is requesting to be transferred to a different hospital because she knows a lot of people who work here and wants some privacy. Past Psychiatric History: Hospital stay in [place] in summer 2019. Diagnosed with bipolar disorder Hospital stay about 20 years ago at [facility] History of overdose last year on Benadryl. Therapist is Bertha Cavazos Psychiatrist is Maryann Barbosa Medical Evaluation Reviewed: Yes Low sodium. On Fluid restriction. Personal & Social History: Live alone. Work as a nurse. Have no children. Review of Systems Review of Systems Constitutional: Denies fatigue and Denies fever(s) Cardiovascular: Denies chest pain and Denies dyspnea Respiratory: Denies dyspnea Gastrointestinal: Denies abdominal pain Psychiatric: denies suicidal ideation Endocrine: Denies fatigue [facility] Medical History Bipolar 1 disorder ADD (attention deficit disorder) Anxiety Depression Family History: Family history of substance use and mental illness Social History: Parents are Brother is Substance History: Denies Trauma History: Extensive trauma history Diagnostics Vital Signs (24Hr): Vital Signs - 24 hr 10/31/24 03:59 10/31/24 05:40 10/31/24 09:48 Temperature 98.7 F 97.7 F 97.9 F Pulse Rate 109 H 88 83 Respiratory Rate 16 14 15 Blood Pressure 172/91 H 131/78 125/65 Pulse Oximetry 97 97 97 Oxygen Delivery Method Room Air Room Air Room Air 10/31/24 12:12 10/31/24 15:15 10/31/24 19:00 Temperature 97.4 F 98.2 F 98.9 F Pulse Rate 88 85 91 Respiratory Rate 16 20 20 Blood Pressure 114/66 122/66 103/66 Pulse Oximetry 95 97 95 Oxygen Delivery Method Room Air Room Air Room Air BMI result Body Mass Index 34.7 Labs 11/01/24 06:14 11/02/24 05:59 Labs: Laboratory Results - last 48 hr 10/31/24 10/31/24 10/31/24 04:21 04:41 05:08 WBC 16.0 H RBC 4.68 Hgb 14.5 Hct 39.6 MCV 84.6 MCH 31.0 MCHC 36.6 H RDW 12.7 Plt Count 298 MPV 9.4 Immature Gran % (Auto) 0.9 H Neut % (Auto) 82.6 H Lymph % (Auto) 10.7 L [place] % (Auto) 5.7 Eos % (Auto) 0.0 Baso % (Auto) 0.1 Lymph # (Auto) 1.7 [place] # (Auto) 0.9 Eos # (Auto) 0.0 Baso # (Auto) 0.0 Abs Immat Gran (auto) 0.14 H Absolute Neuts (auto) 13.2 H Absolute Nucleated RBC 0.000 Nucleated RBC % (auto) 0.0 Hold Purple Top Sodium 123 L Potassium 3.8 Chloride 91 L Carbon Dioxide 21 L Anion Gap 15 BUN 5 L Creatinine 0.50 Estim Creat Clear Calc 139.7 Estimated GFR > 60 Random Glucose 172 H Osmolality 250 L Calcium 8.7 Total Bilirubin 0.5 AST 26 ALT 24 Alkaline Phosphatase 80 Total Protein 6.8 Albumin 4.1 TSH 1.00 Urine Color Yellow Urine Appearance Clear Urine pH 7.5 Ur Specific [place] 1.020 Urine Protein Trace Urine Glucose (UA) >=1000 H Urine Ketones 40 Urine Blood Negative Urine Nitrite Negative Ur Leukocyte Esterase Moderate (2+) H Urine RBC 0-2 Urine WBC 0-5 Ur Squamous Epith Cells 6-10 Urine Bacteria 1+ Hyaline Casts 0-2 Urine Osmolality Ur Random Sodium Salicylates < 5.0 L Urine Opiates Screen Not Detected Ur Buprenorphine Scrn Not Detected Ur Oxycodone Screen Not Detected Urine Methadone Screen Not Detected Urine Fentanyl Screen Not Detected Acetaminophen < 3 Ur Barbiturates Screen Not Detected Ur Phencyclidine Scrn Not Detected Ur Amphetamines Screen Not Detected U Benzodiazepines Scrn Not Detected Urine Cocaine Screen Not Detected U Marijuana (THC) Screen Not Detected Ethyl Alcohol < 10 Influenza Type A (PCR) Influenza Type B (PCR) RSV RNA Qual (PCR) SARS-CoV-2 RNA (RT-PCR) 10/31/24 10/31/24 10/31/24 05:25 05:30 12:45 WBC RBC Hgb Hct MCV MCH MCHC RDW Plt Count MPV Immature Gran % (Auto) Neut % (Auto) Lymph % (Auto) [place] % (Auto) Eos % (Auto) Baso % (Auto) Lymph # (Auto) [place] # (Auto) Eos # (Auto) Baso # (Auto) Abs Immat Gran (auto) Absolute Neuts (auto) Absolute Nucleated RBC Nucleated RBC % (auto) Hold Purple Top SEE NOTE Sodium 127 L Potassium 3.9 Chloride 95 L Carbon Dioxide 27 Anion Gap 9 L BUN 4 L Creatinine 0.49 L Estim Creat Clear Calc 145.8 Estimated GFR > 60 Random Glucose 99 Osmolality Calcium 8.7 Total Bilirubin AST ALT Alkaline Phosphatase Total Protein Albumin TSH Urine Color Urine Appearance Urine pH Ur Specific [place] Urine Protein Urine Glucose (UA) Urine Ketones Urine Blood Urine Nitrite Ur Leukocyte Esterase Urine RBC Urine WBC Ur Squamous Epith Cells Urine Bacteria Hyaline Casts Urine Osmolality 554 Ur Random Sodium 125.0 Salicylates Urine Opiates Screen Ur Buprenorphine Scrn Ur Oxycodone Screen Urine Methadone Screen Urine Fentanyl Screen Acetaminophen Ur Barbiturates Screen Ur Phencyclidine Scrn Ur Amphetamines Screen U Benzodiazepines Scrn Urine Cocaine Screen U Marijuana (THC) Screen Ethyl Alcohol Influenza Type A (PCR) NEGATIVE Influenza Type B (PCR) NEGATIVE RSV RNA Qual (PCR) NEGATIVE SARS-CoV-2 RNA (RT-PCR) NEGATIVE Mental Status Exam Mental Status Exam Narrative: Patient is alert and oriented; behavior is pleasant and cooperative,; patient is not in distress; dressed in hospital attire with kempt hair and adequate hygiene; mood is described as anxious and affect congruent; eye contact appropriate; Speech is normal rate, volume and prosody and not pressured; no psychomotor agitation/retardation present; thought process is organized and goal directed; Thought content is WNL, pertinent to relevant topics and without any delusional content, paranoid ideation or grandiosity; denies any SI/SIB/HI/AVH. Denies AH and there is no evidence of perceptual disturbance. Patient's insight and judgment fair. Judgement and Insight: fair Medications Medications Current Medications Acetaminophen (Acetaminophen 325 Mg Tablet) 975 mg PO Q6H PRN PRN Reason: Pain, Mild 1-3,fever,headache Last Admin: 10/31/24 20:06 Dose: 975 mg Albuterol Sulfate (Albuterol Sulfate 90 Mcg 8 Gm Inhaler) 2 puff INHALE Q4H PRN PRN Reason: Shortness Of Breath Or Wheezing Calcium Carbonate (Calcium Carbonate 750 Mg Tab.Chew) 750 mg PO Q4H PRN PRN Reason: Heartburn Clonidine HCl (Clonidine Hcl 0.1 Mg Tablet) 0.1 mg PO BID PRN; Protocol PRN Reason: Anxiety Enoxaparin Sodium (Enoxaparin Sodium 40 Mg/0.4 Ml Syringe) 40 mg SUBCUT Q24H [facility] Last Admin: 10/31/24 10:30 Dose: 40 mg Hydroxyzine HCl (Hydroxyzine Hcl 50 Mg Tablet) 50 mg PO BEDTIME PRN PRN Reason: Anxiety Lamotrigine (Lamotrigine 100 Mg Tablet) 100 mg PO DAILY [facility] Magnesium Hydroxide (Milk Of Magnesia 30 Ml Oral.Susp) 30 ml PO DAILY PRN PRN Reason: Constipation Melatonin (Melatonin 3 Mg Tablet) 6 mg PO BEDTIME PRN PRN Reason: Insomnia Quetiapine Fumarate (Quetiapine Fumarate 50 Mg Tablet) 50 mg PO BEDTIME [facility] Last Admin: 10/31/24 20:06 Dose: 50 mg Quetiapine Fumarate (Quetiapine Fumarate 25 Mg Tablet) 25 mg PO BID PRN PRN Reason: Agitation Sodium Chloride (0.9 % Sodium Chloride Flush 3 Ml Syringe) 3 ml IVFLUSH QSHIFT [facility] Last Admin: 10/31/24 20:09 Dose: 3 ml Sodium Chloride (Sodium Chloride Tab 1 Gm Tablet) 1 gm PO TID [facility] Last Admin: 10/31/24 20:07 Dose: 1 gm Allergies Allergies Allergy/AdvReac Type Severity Reaction Status Date / Time No Known Allergies Allergy Verified 10/31/24 04:05 Assessment & Plan Assessment & Plan (1) Bipolar 1 disorder with moderate everette: Status: Acute Code(s): F31.12 - Bipolar disorder, current episode manic without psychotic features, moderate (2) Acute hyponatremia: Status: Acute Code(s): E87.1 - Hypo-osmolality and hyponatremia Plan HPI: per ED provider note: patient is a 54 y.o female who comes to the emergency room stating that she feels that she is paranoid, exhausted, has not been sleeping for over a week. Patient denies SI or HI. Patient states that she feels scared, does not know what to do. Patient states that she is requesting to be transferred to a different hospital because she knows a lot of people who work here and wants some privacy. Meet with patient at 17:40 on 10/31/24, I also attempted to mieet her earlier of the day but she was sleeping and can not waking her. Patient was given Benadryl 50, Haldol 5, and Ativan 2 PO earlier today while she was in the emergency room, she was transfer to room 372 why she also was sleeping. She did not know remember what medication she was given and for what reason. She also asked why I have the IV on. Why look at her left arm. She confirms that she taking Lamictal 150mg daily, but it was tapered down as she can not tolerate with higher dose. Therefore current dose is 100 mg daily. She also stated that the outpatient provider just give her Zyprexa 5 mg daily as she call and reports to provider that she is manic. Reports she has been drinking a lot more than a gal of water a day and she has been lost 100 lb in the past she due to eating protein and veggies. Reported that she has not sleeping or eating the past 3 days. She brought herself to the emergency room, as her healthcare proxy-Jonelle Madden she told me if you down will section you because I sound like I was last year . For the assessment, she reported last year she overdose on Benadryl. Reports that she has been going through menopausal, and trouble with sleep. She reported that she has been feeling manic for the past couple of weeks. Reports she consistently taking medication, not missing Lamictal, she wants to take Seroquel instead of Zyprexa. She is receptive to the plan medication. She was educated on low-sodium? which could be affect her mental health. 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 She asked a question if she can go to wing psychiatric floor as she may not know many people there. She accepts to for [facility] psychiatric admission once she medically clear I can not take it anymore. Been exhausting being manic a past couple with weeks . Patient appears calm, pleasant and cooperative, not able to recall what happened seen he she got into the emergency room, she also was given Haldol, Benadryl, Haladol, and Ativan PO which she was sedated and could be help control her manic behavior. Do not appear to be manic during assessment but able to recall history but has been happened. Accept that she is manic and that she needs help. She denies SI/SIB/HI/AVH, do not appear to be paranoid. Formulation/clinical reasoning: Patient has been having Lamictal taper down due to not able to tolerate higher dose, increase fluid intake beyond amount that body need which causing her low sodium to be low. History of suicide attempt last year, history of bipolar, she is in current manic episode. She a soft inpatient level of care admission. She has outpatient provider Dr. Maryann Barbosa Plan At this current time. I do not think Lamictal causing her hyponatremia. The number trending up. She had history of low-sodium, states that she sometimes drinks polite and is will be back to normal. She has been excessive drinking water. Resume Lamictal 100 mg titrate for therapeutic dose for bipolar. Discontinue Zyprexa as per patient request. She would like to try Seroquel: Started 50 mg at bedtime, 25 mg b.i.d. p.r.n.. Continue to titrate to target the manic episode. Once the patient is medically cleared. Care team should be contacted for the assessment, for bed search for inpatient level of care admission. She prefer admission at [facility] as she may not know many people there. However, she understands that it is not always an option to choose where to go as she has to be placed on bed search. Total time managing care of this patient today ____ minutes. Patient educated on: diagnosis, medication risk/benefits and therapeutic strategies Informed Consent: understands and further education needed
[2024-10-31 20:54] LABS: Anion Gap 9 (12-20); Blood Urea Nitrogen 12 mg/dL (9-16); Calcium 8.7 mg/dL (8.4-10.2); Carbon Dioxide 26 mmol/L (22-29); Chloride 101 mmol/L (96-108); Creatinine Clr Calc Pharmacy 117.0; Estimated Glomerular Filt Rate > 60; Potassium 4.1 mmol/L (3.3-5.1); Sodium 132 mmol/L (135-145)
[2024-11-01 03:32] VITALS: BP 103/65; PULSE 82; RESP 18; TEMP 36.7; O2SAT 97
[2024-11-01 06:24] LABS: Hematocrit 40.0 % (37.0-47.0); Hemoglobin 14.1 g/dl (12.0-16.0); Mean Corpuscular HGB Conc 35.3 g/dl (31.0-35.0); Mean Corpuscular Hemoglobin 31.2 pg (27.0-33.0); Mean Corpuscular Volume 88.5 fL (80.0-98.0); NRBC Abs Auto 0.000 X10*3/uL (0.0-0.012); NRBC Pct Auto 0.0 /100WBC (0.0-0.2); Platelet Count 255 X10*3/uL (160-400); Red Blood Count 4.52 X10*6/uL (4.20-5.50); White Blood Count 7.5 X10*3/uL (4.8-10.8)
[2024-11-01 06:40] LABS: Anion Gap 8 (12-20); Blood Urea Nitrogen 8 mg/dL (9-16); Calcium 8.7 mg/dL (8.4-10.2); Carbon Dioxide 28 mmol/L (22-29); Chloride 104 mmol/L (96-108); Creatinine Clr Calc Pharmacy 121.0; Estimated Glomerular Filt Rate > 60; Potassium 4.1 mmol/L (3.3-5.1); Sodium 136 mmol/L (135-145)
[2024-11-01 07:54] VITALS: BP 123/67; PULSE 92; RESP 16; TEMP 36.9; O2SAT 94
[2024-11-01] MEDS: Sodium Chloride Tab 1 GM TABLET PO ×3 (08:02→20:37)
[2024-11-01] MEDS: 0.9 % Sodium Chloride Flush 3 ML SYRINGE IVFLUSH ×3 (08:41→20:37)
[2024-11-01] MEDS: Milk of Magnesia 30 ML ORAL.SUSP PO (08:46)
--- NOTE | 2024-11-01 10:46 | P.PNNP_ITS ---
Subjective Subjective Date of Service: 11/01/24 Interval history: No new changes, sodium improved to 135 this morning Physical Exam 2 Vital Signs: Vital Signs: Last Vital Signs Temp 98.5 F 11/01/24 07:54 Pulse 92 11/01/24 07:54 Resp 16 11/01/24 07:54 BP 123/67 11/01/24 07:54 Pulse Ox 94 11/01/24 07:54 O2 Del Method Room Air 11/01/24 07:54 BMI result Body Mass Index 34.7 General: Elderly lady not in acute distress, chronically ill appearing Nutritional Appearance: well nourished and overweight Eyes: appearance normal, both eyes and all related structures; Alignment and Position: alignment normal and position normal Neck: No lymphadenopathy, no thyromegaly Resp: bilateral air entry equal, occasional added sounds present Cardio: Regular rate, regular rhythm; Heart sounds: S1 normal heart sound present and S2 normal heart sound present GI: soft, nontender, no guarding, no hepatosplenomegaly : bladder normal to inspection, bladder normal to palpation, no renal angle tenderness Skin: no rashes or lesions noted and elasticity normal Neuro: oriented to person, oriented to place, oriented to time and moves all extremities Objective Data Labs 11/01/24 06:14 11/01/24 06:14 Labs: Laboratory Results - last 24 hr 10/31/24 10/31/24 11/01/24 12:45 20:30 06:14 WBC 7.5 RBC 4.52 Hgb 14.1 Hct 40.0 MCV 88.5 MCH 31.2 MCHC 35.3 H RDW 13.2 Plt Count 255 MPV 9.6 Absolute Nucleated RBC 0.000 Nucleated RBC % (auto) 0.0 Hold Purple Top SEE NOTE Sodium 127 L 132 L 136 Potassium 3.9 4.1 4.1 Chloride 95 L 101 104 Carbon Dioxide 27 26 28 Anion Gap 9 L 9 L 8 L BUN 4 L 12 8 L Creatinine 0.49 L 0.61 0.59 Estim Creat Clear Calc 145.8 117.0 121.0 Estimated GFR > 60 > 60 > 60 Random Glucose 99 100 93 Calcium 8.7 8.7 8.7 Microbiology Microbiology Results: Microbiology 10/31/24 Unknown Urine clean catch - Clean Catch Midstream Urine Culture - Final Procedures Date of Service Date of Service: 08/03/25 Assessment & Plan Assessment and plan (1) Bipolar 1 disorder: Status: Acute (2) Acute hyponatremia: Status: Acute Plan Acute hyponatremia: Sodium improved to 136 this morning Possibly secondary to SIADH given her urine sodium 125 and Osmo 555. Given very high urine osmoles IV fluids would drop her serum sodium. Avoid any IV fluids. Fluid restriction less than 1.5 L in 24 hours Continue salt tablets 1 g TID given that she is on Lamictal and Seroquel along with significant psych history. Blood pressure is under control. Can stop if the sodium goes above 140. Time Spent With Patient Time: Total time managing care of this patient today ____ minutes. Progress Note: Quality Stroke Does the patient have a stroke diagnosis?: No
--- NOTE | 2024-11-01 10:51 | HO.PM.IMPN ---
Subjective Subjective Date of Service: 11/01/24 Interval History: Sodium better this morning. Has ongoing anxiety. No significant nursing events overnight. Cardiovascular Cardiovascular: Reports no additional cardiovascular complaints Respiratory Respiratory: Reports no additional respiratory complaints Gastrointestinal Gastrointestinal: Reports no additional gastrointestinal complaints Genitourinary Genitourinary: Reports no additional female genitourinary complaints Psychiatric Psychiatric: Reports anxiety Physical Exam Vital Signs: Vital Signs: Last Vital Signs Temp 98.5 F 11/01/24 07:54 Pulse 92 11/01/24 07:54 Resp 16 11/01/24 07:54 BP 123/67 11/01/24 07:54 Pulse Ox 94 11/01/24 07:54 O2 Del Method Room Air 11/01/24 07:54 BMI result Body Mass Index 34.7 Const: Other: Middle-aged female lying in bed in no distress Neck supple, no JVD Regular rate and rhythm, S1-S2 heard Regular breath sounds bilaterally, no wheezing or crackles appreciated Abdomen soft nontender, no guarding, no rigidity Patient is awake, alert and oriented to self, place, time and person ; no focal motor deficit Psych: Anxious No pedal edema Objective Data Active Medications Acetaminophen (Acetaminophen 325 Mg Tablet) 975 mg PO Q6H PRN PRN Reason: Pain, Mild 1-3,fever,headache Last Admin: 11/01/24 04:04 Dose: 975 mg Documented By: CLAUDIA Albuterol Sulfate (Albuterol Sulfate 90 Mcg 8 Gm Inhaler) 2 puff INHALE Q4H PRN PRN Reason: Shortness Of Breath Or Wheezing Calcium Carbonate (Calcium Carbonate 750 Mg Tab.Chew) 750 mg PO Q4H PRN PRN Reason: Heartburn Clonidine HCl (Clonidine Hcl 0.1 Mg Tablet) 0.1 mg PO BID PRN; Protocol PRN Reason: Anxiety Enoxaparin Sodium (Enoxaparin Sodium 40 Mg/0.4 Ml Syringe) 40 mg SUBCUT Q24H [facility] Last Admin: 11/01/24 08:40 Dose: 40 mg Documented By: AMPARO Hydroxyzine HCl (Hydroxyzine Hcl 50 Mg Tablet) 50 mg PO BEDTIME PRN PRN Reason: Anxiety Last Admin: 11/01/24 08:02 Dose: 50 mg Documented By: LEFMANNY Lamotrigine (Lamotrigine 100 Mg Tablet) 100 mg PO DAILY [facility] Last Admin: 11/01/24 08:02 Dose: 100 mg Documented By: AMPARO Magnesium Hydroxide (Milk Of Magnesia 30 Ml Oral.Susp) 30 ml PO DAILY PRN PRN Reason: Constipation Last Admin: 11/01/24 08:46 Dose: 30 ml Documented By: AMPARO Melatonin (Melatonin 3 Mg Tablet) 6 mg PO BEDTIME PRN PRN Reason: Insomnia Quetiapine Fumarate (Quetiapine Fumarate 50 Mg Tablet) 50 mg PO BEDTIME [facility] Last Admin: 10/31/24 20:06 Dose: 50 mg Documented By: CLAUDIA Quetiapine Fumarate (Quetiapine Fumarate 25 Mg Tablet) 25 mg PO BID PRN PRN Reason: Agitation Sodium Chloride (0.9 % Sodium Chloride Flush 3 Ml Syringe) 3 ml IVFLUSH QSHIFT [facility] Last Admin: 11/01/24 08:41 Dose: 3 ml Documented By: AMPARO Sodium Chloride (Sodium Chloride Tab 1 Gm Tablet) 1 gm PO TID [facility] Last Admin: 11/01/24 08:02 Dose: 1 gm Documented By: AMPARO Labs 11/01/24 06:14 11/01/24 06:14 Labs: Laboratory Results - last 24 hr 10/31/24 10/31/24 11/01/24 12:45 20:30 06:14 MCV 88.5 MCH 31.2 MCHC 35.3 H RDW 13.2 Plt Count 255 MPV 9.6 Absolute Nucleated RBC 0.000 Nucleated RBC % (auto) 0.0 Hold Purple Top SEE NOTE Anion Gap 9 L 9 L 8 L Estim Creat Clear Calc 145.8 117.0 121.0 Estimated GFR > 60 > 60 > 60 Random Glucose 99 100 93 Calcium 8.7 8.7 8.7 Microbiology Microbiology Results: Microbiology 10/31/24 Unknown Urine Culture - Final Urine clean catch - Clean Catch Midstream Assessment and Plan (1) Acute hyponatremia: Status: Acute Plan Patient is a 54-year-old female with a past medical history significant for bipolar 1, who presented to the ED due to paranoia and anxiety stating that she is exhausted.Patient is a 54-year-old female with a past medical history significant for bipolar 1, who presented to the ED due to paranoia and anxiety stating that she is exhausted. Acute hyponatremia due to SIADH: Improved with salt tablets and fluid restriction. Underlying psych meds specially Lamictal could be contributing. Discussed with psychiatry provider, patient is on a Lamictal taper which needs to be continued. Also Seroquel was added due to ongoing decompensated mood. Discussed with Nephrology and will continue salt tablets as patient is on Lamictal and Seroquel. Discontinue salt tablets once sodium goes above 140 but continue fluid restriction. Bipolar 1 Seroquel added to Lamictal. Appreciate psych. CARE team eval Full code VTE prophylaxis: Lovenox Reason for ongoing hospitalization: Safe disposition. Quality Stroke Does the patient have a stroke diagnosis?: No VTE Prior VTE?: No VTE Risk Level:: Medical - moderate - high VTE Device Contraindication: Treatment Not Indicated VTE Drug Contraindication: N/A - Med Ordered
--- NOTE | 2024-11-01 14:56 | MHC.CARE ---
Patient assessed by CARE team 11/01/24, patient is requesting follow up in AM as psych consult was done on 10/31/24 and recommendation was to start patient on Seroquel this evening. Patients psychiatrists is a psych provider here at [facility] (Dr. Maryann Phelan) and she ?will be contacted and consulted on for disposition tomorrow as today is Saturday and provider is out of office so collateral information is unable to be obtained currently. Patient is opting for possible discharge tomorrow with referral to PHP if she fee less manic and Seroquel is effective.
[2024-11-01 15:38] VITALS: BP 103/68; PULSE 110; RESP 16; TEMP 36.9; O2SAT 95
--- NOTE | 2024-11-01 16:34 | MHC.CM.PN ---
PT REPORTS SHE LIVES ALONE, INDEPENDENT SHE REPORTS SHE IS SUPPOSED TO BE STARTING A NEW JOB SOON PCP ON FILE DECLINES A HCP DCP: HOME VS HOME WITH PHP REFERRAL CAR IN LOT
[2024-11-01 20:00] VITALS: BP 116/65; PULSE 100; RESP 18; TEMP 37.4; O2SAT 97
[2024-11-02 03:05] VITALS: BP 110/65; PULSE 87; RESP 18; TEMP 36.9; O2SAT 95
--- NOTE | 2024-11-02 03:32 | PC.NURSE ---
pt c/o pain to iv site keeping her awake asking for iv site out and pt refusing a new iv insertion. dr noriega notified. iv site dc'd intact. will cont to zahra
--- NOTE | 2024-11-02 06:08 | MHC.PIE ---
p; pt c/o abd cramping pain 12/09. pt reports pain worst lying down, pt reports pain to abd and buttocks. i; dr noriega notified e; pt in [place] walking up and down hallway trying to walk off the cramping. will cont to monitor
[2024-11-02 06:33] LABS: Anion Gap 11 (12-20); Blood Urea Nitrogen 17 mg/dL (9-16); Calcium 8.6 mg/dL (8.4-10.2); Carbon Dioxide 26 mmol/L (22-29); Chloride 107 mmol/L (96-108); Creatinine Clr Calc Pharmacy 121.0; Estimated Glomerular Filt Rate > 60; Potassium 4.1 mmol/L (3.3-5.1); Sodium 140 mmol/L (135-145)
[2024-11-02 07:52] VITALS: BP 118/98; PULSE 90; RESP 18; TEMP 37.3; O2SAT 96
[2024-11-02] MEDS: Sodium Chloride Tab 1 GM TABLET PO (08:26)
--- NOTE | 2024-11-02 09:56 | P.PNNP_ITS ---
Subjective Subjective Date of Service: 11/02/24 Interval history: Pt reports cramping in lower abdomen. Otherwise no changes. Sodium 140 this a.m. Physical Exam 2 Vital Signs: Vital Signs: Last Vital Signs Temp 99.1 F 11/02/24 07:52 Pulse 90 11/02/24 07:52 Resp 18 11/02/24 07:52 BP 118/98 H 11/02/24 07:52 Pulse Ox 96 11/02/24 07:52 O2 Del Method Room Air 11/02/24 07:52 BMI result Body Mass Index 34.7 Objective Data Labs 11/01/24 06:14 11/02/24 05:59 Labs: Laboratory Results - last 24 hr 11/02/24 05:59 Hold Purple Top SEE NOTE Sodium 140 Potassium 4.1 Chloride 107 Carbon Dioxide 26 Anion Gap 11 L BUN 17 H Creatinine 0.59 Estim Creat Clear Calc 121.0 Estimated GFR > 60 Random Glucose 82 Calcium 8.6 Microbiology Microbiology Results: Microbiology 10/31/24 Unknown Urine clean catch - Clean Catch Midstream Urine Culture - Final Procedures Date of Service Date of Service: 11/02/24 Assessment & Plan Assessment and plan (1) Acute hyponatremia: Status: Acute Plan Acute hyponatremia likely secondary to SIADH serum sodium has normalized. May discontinue salt tablets, continue fluid restriction of 1.5L/24 hours. If sodium remains normal tomorrow, may liberalize fluid intake, though discussed with patient she should avoid excessive free water intake (had reportedly been drinking a gallon of water daily). Will sign off, happy to follow up if any changes or new concerns arise. Discussed with Dr Telles. Time Spent With Patient Time: Total time managing care of this patient today ____ minutes. Progress Note: Quality Stroke Does the patient have a stroke diagnosis?: No
--- NOTE | 2024-11-02 10:18 | MHC.CARE ---
Pt cleared by CARE team for discharge, referral to PHP completed.
--- NOTE | 2024-11-02 10:27 | MHC.CM.PN ---
PT CLEARED BY CARE TEAM DCP: HOME TODAY VIA SELF TRANSPORT
--- NOTE | 2024-11-02 11:49 | PM.DS ---
DS: Providers Provider Date of Service: 11/03/24 Date of admission: 10/31/24 05:37 Date of discharge: 11/03/24 Primary care physician: Devyn Yang MD Consults: 10/31/24 04:31 ED CARE Team Crisis Consult Routine Comment: Reason for consultation: paranoid, manic 10/31/24 05:42 Consult to Psychiatry Routine Consulting Provider: [facility] Cover[facility] Reason for consultation: bipolar, paranoid Has provider been notified: No 10/31/24 07:07 Consult to Nephrology Routine Consulting Provider: [facility] Reason for consultation: hyponatremia 11/01/24 10:14 Inpt CARE Team Crisis Consult Routine Comment: Reason for consultation: everette DS: Diagnosis Discharge Diagnosis (1) Acute hyponatremia: Status: Acute (2) Bipolar 1 disorder with moderate everette: Status: Acute DS: Summary Hospital Course Hospital Course: H&P on admission: Patient is a 54-year-old female with a past medical history significant for bipolar 1, who presented to the ED due to paranoia and anxiety stating that she is exhausted. Pt is somnolent and medicated, unable to provide a history at this time. Per Ed provider note pt is exhausted, has not been sleeping for over a week. Patient denies SI or HI. Patient states that she feels scared, does not know what to do. Patient states that she is requesting to be transferred to a different hospital because she knows a lot of people who work here and wants some privacy. In the ED she was found to be hyponatremic, likely SIADH. Tachycardia secondary to anxiety. Leukocytosis likely reactive, no infection identified. UTox negative, UA negative for infection. Hospital course: acute hyponatremia due to SIADH, improved with salt tablets and fluid restriction of 1.5 L per 24 hours. Underlying psych meds specifically Lamictal could be contributing.the patient is currently on Lamictal 100mg daily and after discussion with Dr Doss the pt will stay on Lamictal 100mg daily with outpt follow up for management. Seroquel was also added due to ongoing decompensated mood, patient has been receiving 50 mg nightly and 25mg BID PRN anxiety. Nephrology was consulted for hyponatremia the patient was placed on salt tablets t.i.d. until sodium greater than 140. Sodium reached 140 yesterday and sodium tablets were discontinued and she continued with fluid restriction of 1.5 L per 24 hours. Sodium levels remain normal today at 139 and she can start to advance her fluid intake liberally. The patient was cleared by psych and care team and referral to PHP was completed. The patient will be discharged home with Seroquel 50 mg nightly with close follow up with her psychiatrist and PCP. Status at Discharge Functional status at discharge: independent ambulation Overall status at discharge: patient is back to baseline Time Attestation Discharge Coordination Time (in mins): >30 mins Quality: Safe Use of Opioids Does Pt have an Active Cancer Diagnosis on the Problem List?: No Quality: Stroke Does the patient have a stroke diagnosis?: No Physical Exam Exam: Exam: General: AOx3, no acute distress Resp: CTA bilaterally CVS: S1, S2, RRR GI: +BS, NT, no distention Skin: Warm, dry Neuro: Cranial nerves II-XII grossly intact bilaterally. Motor grossly intact bilaterally Extremities: No LE edema Psych: pleasant, no SI or HI. hypomanic Vital Signs: Vital Signs: Last Vital Signs Temp 99.1 F 11/02/24 07:52 Pulse 90 11/02/24 07:52 Resp 18 11/02/24 07:52 BP 118/98 H 11/02/24 07:52 Pulse Ox 96 11/02/24 07:52 O2 Del Method Room Air 11/02/24 07:52 BMI result Body Mass Index 34.7 DS: Data Data Completed and Pending Labs on day of discharge: Laboratory Results - last 24 hr 11/02/24 05:59 Hold Purple Top SEE NOTE Sodium 140 Potassium 4.1 Chloride 107 Carbon Dioxide 26 Anion Gap 11 L BUN 17 H Creatinine 0.59 Estim Creat Clear Calc 121.0 Estimated GFR > 60 Random Glucose 82 Calcium 8.6 Discharge Plan Discharge Anticipated Discharge Date/Time: 11/02/24 11:40 Patient Disposition: Home, Self-Care Discharge Diagnosis: acute hyponatremia, SIADH, bipolar with everette Referrals: Devyn Yang MD [Primary Care Provider, Medical] - 1 Week Discharge Medications: New quetiapine 50 mg Tablet 50 mg PO BEDTIME Qty: 30 2RF Continued clonidine HCl 0.1 mg tablet 0.1 mg PO BID PRN (Reason: anxiety) olanzapine 5 mg tablet 5 mg PO BEDTIME PRN (Reason: insomnia) hydroxyzine pamoate 50 mg capsule 50 mg PO BEDTIME PRN (Reason: Anxiety) albuterol sulfate 90 mcg/actuation HFA aerosol inhaler 2 puff inhalation Q4H PRN (Reason: Shortness Of Breath Or Wheezing) lamotrigine 100 mg tablet 100 mg PO DAILY Discharge Orders: Discharge Order (Routine); Ordered 11/03/24 Ordered By: Jasmin Pozo Diet: Advance to usual diet Activity on Discharge: No Restrictions Stand Alone Forms: Patient Portal Discharge page, Work/School Release Print Language: Fijian Care Plan Goals: recover from acute hyponatremia follow up with psychiatrist for mood disorder Health Concerns: acute hyponatremina- resolved. mood disorder, everette Plan of Treatment: avoid excessive fluid intake. ensure you are consuming beverages with electrolytes. follow-up with psychiatrist within the next week continue with lamictal 100mg daily continue Seroquel 50 mg at bedtime follow up with PCP within 2-4 days Assessment: see above
--- NOTE | 2024-11-02 13:58 | HO.PM.IMPN ---
Subjective Subjective Date of Service: 11/02/24 Interval History: f/u SIADH, hyponatremia, bipolar everette pt feeling well was having abd cramping, improved with BM no SI/HI Review of Systems Review of Systems: Yes all other systems are reviewed and are negative Physical Exam Exam: Exam: General: AOx3, no acute distress Resp: CTA bilaterally CVS: S1, S2, RRR GI: +BS, NT, no distention Skin: Warm, dry Neuro: Cranial nerves II-XII grossly intact bilaterally. Motor grossly intact bilaterally Extremities: No LE edema Psych: Hypomanic Vital Signs: Vital Signs: Last Vital Signs Temp 99.1 F 11/02/24 07:52 Pulse 90 11/02/24 07:52 Resp 18 11/02/24 07:52 BP 118/98 H 11/02/24 07:52 Pulse Ox 96 11/02/24 07:52 O2 Del Method Room Air 11/02/24 07:52 BMI result Body Mass Index 34.7 Objective Data Active Medications Acetaminophen (Acetaminophen 325 Mg Tablet) 975 mg PO Q6H PRN PRN Reason: Pain, Mild 1-3,fever,headache Last Admin: 11/01/24 04:04 Dose: 975 mg Documented By: CLAUDIA Albuterol Sulfate (Albuterol Sulfate 90 Mcg 8 Gm Inhaler) 2 puff INHALE Q4H PRN PRN Reason: Shortness Of Breath Or Wheezing Calcium Carbonate (Calcium Carbonate 750 Mg Tab.Chew) 750 mg PO Q4H PRN PRN Reason: Heartburn Clonidine HCl (Clonidine Hcl 0.1 Mg Tablet) 0.1 mg PO BID PRN; Protocol PRN Reason: Anxiety Enoxaparin Sodium (Enoxaparin Sodium 40 Mg/0.4 Ml Syringe) 40 mg SUBCUT Q24H [facility] Last Admin: 11/02/24 08:26 Dose: 40 mg Documented By: KENYETTA Hydroxyzine HCl (Hydroxyzine Hcl 50 Mg Tablet) 50 mg PO BEDTIME PRN PRN Reason: Anxiety Last Admin: 11/01/24 08:02 Dose: 50 mg Documented By: LEFMANNY Lamotrigine (Lamotrigine 100 Mg Tablet) 100 mg PO DAILY [facility] Last Admin: 11/02/24 08:26 Dose: 100 mg Documented By: KENYETTA Magnesium Hydroxide (Milk Of Magnesia 30 Ml Oral.Susp) 30 ml PO DAILY PRN PRN Reason: Constipation Last Admin: 11/01/24 08:46 Dose: 30 ml Documented By: AMPARO Melatonin (Melatonin 3 Mg Tablet) 6 mg PO BEDTIME PRN PRN Reason: Insomnia Quetiapine Fumarate (Quetiapine Fumarate 50 Mg Tablet) 50 mg PO BEDTIME [facility] Last Admin: 11/01/24 20:37 Dose: 50 mg Documented By: GALILEO Quetiapine Fumarate (Quetiapine Fumarate 25 Mg Tablet) 25 mg PO BID PRN PRN Reason: Agitation Last Admin: 11/02/24 01:19 Dose: 25 mg Documented By: GALILEO Sodium Chloride (0.9 % Sodium Chloride Flush 3 Ml Syringe) 3 ml IVFLUSH QSHIFT [facility] Last Admin: 11/02/24 08:28 Dose: Not Given Documented By: KENYETTA Non-Admin Reason: No Access Labs 11/01/24 06:14 11/02/24 05:59 Labs: Laboratory Results - last 24 hr 11/02/24 05:59 Hold Purple Top SEE NOTE Anion Gap 11 L Estim Creat Clear Calc 121.0 Estimated GFR > 60 Random Glucose 82 Calcium 8.6 Microbiology Microbiology Results: Microbiology 10/31/24 Unknown Urine Culture - Final Urine clean catch - Clean Catch Midstream Assessment and Plan (1) Acute hyponatremia: Status: Acute (2) Bipolar 1 disorder with moderate everette: Status: Acute Plan Patient is a 54-year-old female with a past medical history significant for bipolar 1, who presented to the ED due to paranoia and anxiety stating that she is exhausted.Patient is a 54-year-old female with a past medical history significant for bipolar 1, who presented to the ED due to paranoia and anxiety stating that she is exhausted. Acute hyponatremia due to SIADH: Improved with salt tablets and fluid restriction. Underlying psych meds specially Lamictal could be contributing. Discussed with psychiatry provider, recommend continuing 100mg daily. Nephrology: ok to discontinue sodium tablets. continue fluid restriction 1.5L/24hr Bipolar 1 Seroquel added to Lamictal cleared by care team plan for close outpt f/u continue lamictal 100mg daily Full code VTE prophylaxis: Lovenox Reason for ongoing hospitalization: hyponatremia, repeat labs in AM, discharge if normal. Quality Stroke Does the patient have a stroke diagnosis?: No VTE Prior VTE?: No VTE Risk Level:: Medical - moderate - high VTE Device Contraindication: Treatment Not Indicated VTE Drug Contraindication: N/A - Med Ordered
--- NOTE | 2024-11-02 14:49 | PC.NURSE ---
Pt educated that Provider would like her to stay until tomorrow. Pt would have to leave AMA if she wants to leave the hospital
[2024-11-02 16:00] VITALS: BP 133/71; PULSE 91; RESP 15; TEMP 36.2; O2SAT 93
--- NOTE | 2024-11-02 16:19 | PM.PSYCN ---
History of Present Illness Date of Service: 11/02/24 Chief Complaint: anxiety Reason for Consult: Bipolar d/o Requesting physician: Jasmin Pozo Discussed with referring provider: Yes Sources of Information: patient interviewed, chart reviewed and crisis/core team assessment reviewed HPI Narrative: Patient is a 54-year-old female with history of bipolar d/o, who presented to the ED due to paranoia and anxiety stating that she is exhausted.In the ED she was found to be hyponatremic, likely SIADH. Psychiatric consult for Bipolar d/o, ? need for IPLOC Patient presents alert and oriented x3. calm and cooperative. Patient reports when she initially came to the hospital, because she felt manic . Patient believes this is d/t her working in the yard, drinking large amounts of water and washing out her medication . Patient stated, I've been taking lamictal for almost [address] Barbosa every other month. I'm fine now. I'm no longer feeling manic . denies SI/HI/VH/AH. denies hx of SIB. hx of overdose on Benadryl one year ago. Patient reports she plans on returning home and following up with her outpatient psychiatric providers. Care team clinician determined patient does not meet IPLOC. T/W spoke with patient's outpatient psychiatrist, Dr. Maryann Barbosa who stated she does not have any concerns regarding patient's safety and plans on following up with patient outpatient. Past Psychiatric History: Hospital stay in [place] in summer 2019. Diagnosed with bipolar disorder Hospital stay about 20 years ago at [facility] History of overdose last year on Benadryl. Therapist is Bertha Cavazos Psychiatrist is Maryann Barbosa Medical Evaluation Reviewed: Yes [facility] Medical History Bipolar 1 disorder ADD (attention deficit disorder) Anxiety Depression Family History: Family history of substance use and mental illness Social History: Lives alone. . no kids. unemployed. Parents are , Brother is Trauma History: Extensive trauma history Diagnostics Vital Signs (24Hr): Vital Signs - 24 hr 11/01/24 20:00 11/02/24 03:05 11/02/24 07:52 Temperature 99.3 F 98.4 F 99.1 F Pulse Rate 100 87 90 Respiratory Rate 18 18 18 Blood Pressure 116/65 110/65 118/98 H Pulse Oximetry 97 95 96 Oxygen Delivery Method Room Air Room Air Room Air BMI result Body Mass Index 34.7 Labs 11/01/24 06:14 11/02/24 05:59 Labs: Laboratory Results - last 48 hr 10/31/24 11/01/24 11/02/24 20:30 06:14 05:59 WBC 7.5 RBC 4.52 Hgb 14.1 Hct 40.0 MCV 88.5 MCH 31.2 MCHC 35.3 H RDW 13.2 Plt Count 255 MPV 9.6 Absolute Nucleated RBC 0.000 Nucleated RBC % (auto) 0.0 Hold Purple Top SEE NOTE Sodium 132 L 136 140 Potassium 4.1 4.1 4.1 Chloride 101 104 107 Carbon Dioxide 26 28 26 Anion Gap 9 L 8 L 11 L BUN 12 8 L 17 H Creatinine 0.61 0.59 0.59 Estim Creat Clear Calc 117.0 121.0 121.0 Estimated GFR > 60 > 60 > 60 Random Glucose 100 93 82 Calcium 8.7 8.7 8.6 Mental Status Exam Mental Status Exam Patient Appearance: Appropriate Patient Orientation: Person, Place, Time and Situation Level of Consciousness: Awake and Alert Patient Behavior: Appropriate, Cooperative and Good Eye Contact Mood Description: Calm Affect Description: Calm Ability to Follow Directions: Good Speech Pattern: Clear Memory Description: Intact Hallucinations: None Delusions: Not Present Thought Process: Intact Thought Content: positive for Intact Medications Medications Current Medications Acetaminophen (Acetaminophen 325 Mg Tablet) 975 mg PO Q6H PRN PRN Reason: Pain, Mild 1-3,fever,headache Last Admin: 11/01/24 04:04 Dose: 975 mg Albuterol Sulfate (Albuterol Sulfate 90 Mcg 8 Gm Inhaler) 2 puff INHALE Q4H PRN PRN Reason: Shortness Of Breath Or Wheezing Calcium Carbonate (Calcium Carbonate 750 Mg Tab.Chew) 750 mg PO Q4H PRN PRN Reason: Heartburn Clonidine HCl (Clonidine Hcl 0.1 Mg Tablet) 0.1 mg PO BID PRN; Protocol PRN Reason: Anxiety Enoxaparin Sodium (Enoxaparin Sodium 40 Mg/0.4 Ml Syringe) 40 mg SUBCUT Q24H [facility] Last Admin: 11/02/24 08:26 Dose: 40 mg Hydroxyzine HCl (Hydroxyzine Hcl 50 Mg Tablet) 50 mg PO BEDTIME PRN PRN Reason: Anxiety Last Admin: 11/01/24 08:02 Dose: 50 mg Lamotrigine (Lamotrigine 100 Mg Tablet) 100 mg PO DAILY [facility] Last Admin: 11/02/24 08:26 Dose: 100 mg Magnesium Hydroxide (Milk Of Magnesia 30 Ml Oral.Susp) 30 ml PO DAILY PRN PRN Reason: Constipation Last Admin: 11/01/24 08:46 Dose: 30 ml Melatonin (Melatonin 3 Mg Tablet) 6 mg PO BEDTIME PRN PRN Reason: Insomnia Quetiapine Fumarate (Quetiapine Fumarate 50 Mg Tablet) 50 mg PO BEDTIME [facility] Last Admin: 11/01/24 20:37 Dose: 50 mg Quetiapine Fumarate (Quetiapine Fumarate 25 Mg Tablet) 25 mg PO BID PRN PRN Reason: Agitation Last Admin: 11/02/24 01:19 Dose: 25 mg Sodium Chloride (0.9 % Sodium Chloride Flush 3 Ml Syringe) 3 ml IVFLUSH QSHIFT [facility] Last Admin: 11/02/24 16:10 Dose: Not Given Allergies Allergies Allergy/AdvReac Type Severity Reaction Status Date / Time No Known Allergies Allergy Verified 10/31/24 04:05 Assessment & Plan Assessment & Plan (1) Bipolar 1 disorder: Status: Acute Code(s): F31.9 - Bipolar disorder, unspecified Plan Care team clinician determined patient does not meet IPLOC. T/W spoke with patient's outpatient psychiatrist, Dr. Maryann Barbosa who stated she does not have any concerns regarding patient's safety and plans on following up with patient outpatient. Total time managing care of this patient today _30___ minutes. Patient educated on: diagnosis and medication risk/benefits
--- NOTE | 2024-11-02 16:41 | PC.NURSE ---
JOHNIE Pozo made aware pt does not have IV access, per provider not necessary at this time.
[2024-11-02 19:00] VITALS: BP 136/74; PULSE 99; RESP 18; TEMP 36.7; O2SAT 97
--- NOTE | 2024-11-02 19:07 | PC.NURSE ---
Education provided on fl restriction, hand out given to pt for amounts in ml/oz conversion.
--- NOTE | 2024-11-03 00:29 | PC.NURSE ---
pt in [place] wanting to get discharged tonight, dr gomez in [place], pt requesting lab to be drawn now so she can get discharged. pt noted with increasing agitation and paranoia. pt complaining that she can't sleep, dr gomez suggesting pt to take prn seroquel, clonidine and atarax now to help with sleep. pt directed back to room, prn meds given. not even 10min later, staff introduced self to pt at the beginning of shift, pt started yelling and crying at staff claiming i don't need a one to one i don't need you watching my room . now pt accusing other staff in in nursing station in [place] of keeping watch on her, becoming increasingly paranoid/manic? dr gomez notified. will con to monitor
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
[2024-11-03 06:29] LABS: Anion Gap 9 (12-20); Blood Urea Nitrogen 13 mg/dL (9-16); Calcium 8.6 mg/dL (8.4-10.2); Carbon Dioxide 29 mmol/L (22-29); Chloride 106 mmol/L (96-108); Creatinine Clr Calc Pharmacy 129.9; Estimated Glomerular Filt Rate > 60; Potassium 4.5 mmol/L (3.3-5.1); Sodium 139 mmol/L (135-145)
[2024-11-03 08:00] VITALS: BP 146/67; PULSE 88; RESP 20; TEMP 36.1; O2SAT 99
--- NOTE | 2024-11-03 10:36 | MHC.CM.PN ---
DP: PT HAS BEEN MEDICALLY CLEARED FOR DC HOME, NO SERVICES. PT'S CAR IS IN THE LOT AND WILL TRANSPORT SELF.
[2024-11-03 10:44] VITALS: BP 138/78; PULSE 95; RESP 20; TEMP 36.2; O2SAT 98
[2024-11-03 21:53] LABS: Lamotrigine Lamictal 1.3 mcg/mL (2.5-15.0)
== END 2024-11-03 11:00 | disposition home or self-care (01) | DRG 426 ==
LOC: HO.ED 05:32 → HO.EDOVER 05:46 → HO.S3 10:12
PROVIDERS: Internal Medicine Critical Care Medicine; Student in an Organized Health Care Education/Training Program; Admitting Provider Physician Assistant; Emergency Provider Emergency Medicine; PCP Internal Medicine; Visit Provider Physician Assistant
DX: E22.2 Syndrome of inappropriate secretion of antidiuretic hormone (principal); E87.20 Acidosis, unspecified; E87.8 Other disorders of electrolyte and fluid balance, not elsewhere classified; F31.12 Bipolar disorder, current episode manic without psychotic features, moderate; Z20.822 Contact with and (suspected) exposure to COVID-19; Z87.891 Personal history of nicotine dependence; Z79.899 Other long term (current) drug therapy
CPT/HCPCS: 36415; 71045; 80048; 80053; 80143; 80175; 80179; 80307; 81001; 83930; 83935; 84300; 84443; 85025; 85027; 87086; 87637; 99285; J1650; J7120; S9485

== ENCOUNTER → 2024-10-31 05:17 | Outpatient (BNV) | payer OTHER, SELFPAY | PROVIDERS: Admitting Provider Physician Assistant; Emergency Provider Emergency Medicine; PCP Internal Medicine; Visit Provider Specialist | DX: R41.82 Altered mental status, unspecified (principal) | CPT/HCPCS: 71045 ==

== ENCOUNTER → 2024-10-31 05:37 | Outpatient (BNV) | payer OTHER, SELFPAY | PROVIDERS: Admitting Provider Physician Assistant; Emergency Provider Emergency Medicine; PCP Internal Medicine; Visit Provider Physician Assistant | DX: E87.1 Hypo-osmolality and hyponatremia (principal); F31.9 Bipolar disorder, unspecified | CPT/HCPCS: 99222; 99232 ==

== ENCOUNTER → 2024-10-31 05:37 | Outpatient (BNV) | payer OTHER, SELFPAY | PROVIDERS: Admitting Provider Physician Assistant; Emergency Provider Emergency Medicine; PCP Internal Medicine; Visit Provider Nurse Practitioner Family | DX: E87.1 Hypo-osmolality and hyponatremia (principal) | CPT/HCPCS: 99231 ==

== ENCOUNTER → 2024-10-31 05:37 | Outpatient (BNV) | payer OTHER, SELFPAY | PROVIDERS: Admitting Provider Physician Assistant; Emergency Provider Emergency Medicine; PCP Internal Medicine; Visit Provider Nurse Practitioner Psychiatric/Mental Health | DX: F31.9 Bipolar disorder, unspecified (principal) | CPT/HCPCS: 99232 ==

== ENCOUNTER → 2024-10-31 05:37 | Outpatient (BNV) | payer OTHER, SELFPAY | PROVIDERS: Admitting Provider Physician Assistant; Emergency Provider Emergency Medicine; PCP Internal Medicine; Visit Provider Internal Medicine Critical Care Medicine | DX: E87.1 Hypo-osmolality and hyponatremia (principal) | CPT/HCPCS: 99223; 99232 ==